=== PATIENT | female | born 1960 | race Caucasian/White ===

== ENCOUNTER 2018-07-19 00:57 | Outpatient (CLI) | payer MEDICAID, SELFPAY ==
[2018-07-19 11:18] LABS: Abs Immature Grans 0.01 k/cumm (0.0-0.09); Absolute Basophil Count 0.03 k/cumm (0.0-0.2); Absolute Eosinophil Count 0.11 k/cumm (0.0-0.7); Absolute Monocyte Count 0.65 k/cumm (0.11-0.7); Basophils % 0.4; Eosinophils % 1.4; HCT 40.7 % (36.0-46.0); HGB 13.4 g/dL (12.0-15.5); Immature Grans % 0.1; Lymphocytes % 24.4; Mean Corp. HGB Concentration 32.9 g/dL (32.0-36.0); Mean Corpuscular Hemoglobin 32.4 pg (27.0-33.0); Mean Corpuscular Volume 98.5 fL (80-95); Monocytes % 8.3; Neutrophils % 65.4; Platelet Count 291 x1000/uL (130-400); RBC 4.13 m/cumm (4.00-5.20); RBC Distribution Width 13.3 % (11.7-14.6)
[2018-07-19 12:52] LABS: ALT 24 U/L (12-78); AST 15 U/L (15-37); Albumin 3.6 g/dL (3.4-5.0); Alkaline Phosphatase 75 U/L (46-116); Anion Gap 12.1 mmol/L (3-11); BUN 30 mg/dL (7-18); Bilirubin, Total 0.4 mg/dL (0.2-1.0); CO2 23.9 mmol/L (21.0-32.0); Calcium 9.2 mg/dL (8.5-10.1); Chloride 104 mmol/L (98-107); Cholesterol 217 mg/dL (50-200); Estimated GFR 56.56 (mL/min/1.73m2); Glucose 102 mg/dL (70-100); HDL Cholesterol 76 mg/dL (40-60); LDL CHOLESTEROL 118 mg/dL (<100); Potassium 4.1 mmol/L (3.5-5.1); Sodium 140 mmol/L (136-145); TSH (W/Ref FT4) 4.09 uIU/mL (0.358-3.74); Total Protein 7.2 g/dL (6.4-8.2); Triglyceride 125 mg/dL (30-150); Vitamin B12 648 pg/mL (193-986)
[2018-07-19 13:03] LABS: Folate > 20.0 ng/mL (8.6-20.0)
[2018-07-19 13:28] LABS: FREE T4 0.93 ng/dL (0.76-1.46)
[2018-07-24 14:39] LABS: 25-Hydroxy D Total 66 ng/mL; 25-Hydroxy D2 <4.0 ng/mL; 25-Hydroxy D3 66 ng/mL
== END 2018-07-19 01:17 ==
PROVIDERS: Nurse Practitioner Family; PCP Nurse Practitioner; Visit Provider Nurse Practitioner Family
DX: R10.13 Epigastric pain (principal); R14.2 Eructation; Z00.00 Encounter for general adult medical examination without abnormal findings; Z13.29 Encounter for screening for other suspected endocrine disorder; D50.9 Iron deficiency anemia, unspecified; E66.9 Obesity, unspecified
CPT/HCPCS: 36415; 80053; 80061; 82306; 83721; 82607; 82746; 84439; 84443; 85025

== ENCOUNTER 2020-10-04 18:58 | Emergency (ER) | payer MEDICAID, SELFPAY ==
--- NOTE | 2020-10-04 19:09 | NUR.NOTE ---
Pt sent over from [facility] at 1905. Pt with daughter in registration area when Alberto from registration explained the policy on visitors. Alberto called back stating that the daughter refuses to let her mother (the patient) in alone. Charge nurse went out and spoke to Alberto. Charge nurse approached patient and daughter, and explained that the policy is that only patients can be seen, unless the patient has documented diagnosis of demenita or is a minor. The daughter got upset and stated that she is a veterinary bacteriologist and understands the policy but thinks she should be allowed back. At that point the patient made the decision to walk out of vestibule and back towards the car. The daughter continued on to say So you are not going to give her medical attention, she could out there! Charge explained that she can come in and get all the medical attention she needs, but our policy states she has to come back alone. The daughter then stated well my brother is an employee, can he come back with her? Again, olivier stated. Unfortunately not, due to the state of the pandemic and the policy set in place, the patient will need to come back to the department alone. The daughter left and headed towards the car. Nurse came back to let DO know and [facility] was also contacted.
== END 2020-10-04 19:05 ==
LOC: ER 21:03
PROVIDERS: PCP Nurse Practitioner
DX: Z53.21 Procedure and treatment not carried out due to patient leaving prior to being seen by health care provider (principal)

== ENCOUNTER 2020-11-09 15:51 | Outpatient (CLI) | payer MEDICAID, SELFPAY ==
--- NOTE | 2020-12-10 14:23 | CER_ITS ---
Date of service: 12/10/20 Time of Service: 14:23 Cardiac Event Recorder Referring Provider:: Marie Buckley Indications:: Dizziness Cardiac Event Note: This was a 30-day event monitor, ordered for symptoms of dizziness. Predominant rhythm was sinus. Average heart rate was 82 There were rare atrial and ventricular ectopic beats There was no atrial fibrillation, no pauses greater than 3 seconds, no high- grade AV block No patient symptoms were reported
== END 2020-11-09 15:52 | disposition home or self-care (01) ==
LOC: RT 15:53
PROVIDERS: PCP Nurse Practitioner; Visit Provider Nurse Practitioner Family
DX: R42 Dizziness and giddiness (principal); R94.31 Abnormal electrocardiogram [ECG] [EKG]
CPT/HCPCS: 93270

== ENCOUNTER 2020-12-03 02:39 | Outpatient (CLI) | payer MEDICAID, SELFPAY ==
[2020-12-03 11:32] LABS: Source Nasal/Nares
[2020-12-03 16:50] LABS: COVID-19 PCR Negative (Negative)
== END 2020-12-03 02:40 | disposition home or self-care (01) ==
LOC: LBO 02:39
PROVIDERS: PCP Physician Assistant; Visit Provider Surgery
DX: Z20.822 Contact with and (suspected) exposure to COVID-19 (principal)
CPT/HCPCS: 87635

== ENCOUNTER 2020-12-06 07:08 | Day surgery (SDC) | payer MEDICAID, SELFPAY ==
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
--- NOTE | 2020-12-06 06:40 | ENDO_ITS ---
Date of service: 12/06/20 Time of Service: 08:17 Endoscopy Report DATE OF PROCEDURE: 12/06/20 PRE-OP DIAGNOSIS: GERD, Colon Cancer Screening POST-OP DIAGNOSIS: other (Gastritis, Gastric polyps, Esopghagitris, lizama- diverticulosis) PROCEDURE: 1. EGD with biopsies 2. Colonoscopy SURGEON: Erna Ko ANESTHESIA TYPE: General:No Airway ESTIMATED BLOOD LOSS: 3 PATHOLOGY: other (Antrum Bx, Cardia bx, gastric polyp bx) COMPLICATIONS: None DISPOSITION: same day INDICATIONS: Mrs. Lama is a 60-year-old female with high anxiety who is here today to discuss having an upper endoscopy and colonoscopy done. She has been having worsening reflux symptoms and is currently taking Prilosec twice a day, Carafate 4 times a day as well as as needed Rolaids. She also has had some lower abdominal pain. Her stools have changed from mostly constipated to soft. She has not had any blood. She has no family history of colon cancer. She has never had a colonoscopy before. We discussed having anesthesia place the IV under ultrasound guidance as per her request. She would also benefit from an MKO prior to her IV placement. We will allow her daughter Marielos to come in with her as she would be a calming presence for the patient. The patient's other concern is that she has been told that she has a difficult airway. I did reassure her that I would pass this information along. Were explained in detail using pamphlets with pictures. We reviewed risks and benefits. All her questions were answered to her satisfaction. Risks, benefits and complications have been reviewed. Complications include but are not limited to bleeding, pain, perforation, missed small lesion/polyp, sore throat, aspiration and adverse reaction to the medications. Questions were entertained and answered to their satisfaction and they wished to proceed. No guarantees were given or implied. COVID-19 testing explained to the patient. Reason for test reviewed. Quarantine per state requirements reviewed with patient. Patient understands and agrees to testing. Proceed with EGD and colonoscopy under sedation. PREP: Miralax/Dulcolax PROCEDURE START TIME: 08:17 PROCEDURE END TIME: 08:52 COLONOSCOPY RETRACTION TIME: 13 minutes FINDINGS: Upper- moderate gastritis, mild esophagitis Lower- Lizama-diverticulosis PROCEDURE DESCRIPTION: After informed consent was obtained the patient was take to the procedure room and placed in a supine position. Monitors were applied and a time out was done. The patients name, date of , procedure type, allergies to medications and metal in their body was reviewed. A bite block was placed and the patient was sedated. Once sedated and comfortable the gastroscope was advanced through the oropharynx which was grossly normal into the esophagus. The proximal and mid- esophagus were normal. In the distal esophagus there was mild inflammation noted. The scope was advanced into the stomach and through the pylorus into the 3rd portion of the duodenum. The duodenum was noted to be normal. The scope was retracted back into the stomach. There was moderate inflammation noted in the antrum, cardia and fundus. Biopsies were done to rule out H. pylori. There were no ulcers. There were numerous small polyps that looked like benign fundic polyps. 3 of them were randomly biopsied. The scope was retro-flexed. The cardia and fundus were noted to have inflammation. There was no hiatal hernia noted. The scope was retracted back into the esophagus. There was mild inflammation noted. Biopsies were done of the GE junction to rule out Gonzalez's. The Z line was regular. The GE junction was at 35 cm. While the patient was still sedated they were placed in a left decubitous position. A rectal exam was done. External exam was normal. Internal exam revealed a decreased sphincter tone and no palpable masses. The scope was then introduced and retro-flexed. No internal hemorrhoids, masses or polyps were identified on retroflexion. The scope was then advanced to the cecum without difficulty. The ileocecal valve and appendiceal orifice were identified. The prep was good. The scope was then slowly retracted over 13 minutes back into the rectum. There were no polyps. There was moderate lizama- diverticulosis noted. The scope was removed and the patient was woken up and taken back to Same day surgery in stable condition. The patient tolerated the procedure well and there were no immediate complications. Follow up: 10 years for next colonoscopy. I will call with results of upper endoscopy. Continue medications as prescribed for now.
--- NOTE | 2020-12-06 06:41 | W.PM.DSUDISC ---
Discharge Plan Disposition Patient Disposition: HOME Condition: Good Discharge Details Reason For Visit: GERD and colonoscopy Attending Provider: Erna Ko Primary Care Provider: Barrett Stallworth Home Meds and New Rx's Prescriptions: Discontinued polyethylene glycol 3350 [Miralax] 17 GM powder in packet 255 gm PO for colonoscopy Qty: 1 RF: 0 bisacodyl [Dulcolax (bisacodyl)] 5 MG tablet,delayed release (DR/EC) 5 mg PO ONCE Qty: 4 RF: 0 omeprazole [Prilosec] 20 MG capsule,delayed release(DR/EC) 20 mg PO DAILY RF: 0 No Action sucralfate [Carafate] 100 mg/mL suspension 10 ml PO QAC RF: 0 diphenhydramine HCl [Benadryl] 25 mg capsule 25 mg PO QHS RF: 0 fluticasone propionate [Flonase Allergy Relief] 50 mcg/actuation spray,suspension 1 spray intranasal BID RF: 0 pantoprazole 40 mg tablet,delayed release (DR/EC) 40 mg PO BID RF: 0 lorazepam 1 mg tablet 1 mg PO ONCE PRNRF: 0 triamcinolone acetonide 0.1 % cream 1 applic topical BID RF: 0 nystatin 100,000 unit/gram cream 1 applic topical BID RF: 0 albuterol sulfate [ProAir HFA] 90 mcg/actuation HFA aerosol inhaler 2 puff inhalation Q6H PRNRF: 0 Calci-Mix 500 mg calcium (1,250 mg) capsule 500 mg PO DAILY RF: 0 black cohosh 20 mg tablet 20 mg PO DAILY RF: 0 cholecalciferol (vitamin D3) 25 mcg (1,000 unit) capsule 25 mcg PO DAILY RF: 0 omega-3 fatty acids [Fish Oil Concentrate] 1,000 mg capsule 1,000 mg PO DAILY RF: 0 paroxetine HCl [Paxil] 10 MG tablet 10 mg PO DAILY RF: 0 bupropion HCl [Wellbutrin] 100 MG tablet 450 mg PO DAILY RF: 0 loratadine [Claritin Liqui-Gel] 10 MG capsule 10 mg PO DAILY RF: 0 acetaminophen [Tylenol] 325 mg Capsule 650 mg PO PRN PRNRF: 0 Discharge Instructions Instructions: Diet for Stomach Ulcers and Gastritis (ED), Gastric Polyps (DC), Gastritis (DC), Esophagitis (DC), Diverticulosis (DC) Additional Instructions: Findings: Inflammation of the stomach and esophagus. No ulcers Diverticulosis Follow up: 10 years for next colonoscopy I will call with results Please call if you develop: fevers >101.5 Nausea or Vomiting Abdominal pain that is not transient DAY SURGERY UNIT POST ENDOSCOPY INSTRUCTIONS 1. Because there will be medication in your system for the next 24 hours, you may feel a little sleepy. Your coordination will be affected. Therefore: a. Do not drive or operate dangerous equipment for 24 hours. b. Do not drink alcohol beverages for 24 hours (not even beer). c. Plan to go home and rest for the day. 2. Generally there are no restrictions on your activity after a day or so has gone by, but you may feel a bit fatigued for a few days. 3 After you arrive home you may have a light meal and return to a normal diet as you can tolerate it without feeling sick to your stomach. 4. After surgery, you may feel pain or discomfort. This should be only transient, but if it persists please contact your doctor. 5. If there are any questions regarding the findings of your procedure, please feel free to contact your doctor. 6. If you are unable to contact your doctor with a problem, contact the hospital at [phone]. 7. Continue all your regular medications unless directed otherwise. I understand the above instructions and have no questions. Signature of Patient or Responsible Adult Escort Date/Time Name of Responsible Adult Escort Signature of Nurse Date/Time Activity:: Activity as Tolerated Diet:: low acid and high fiber Discharge Orders Discharge Orders: Discharge Order (Routine); Ordered 12/06/20 Ordered By: Erna Ko DS: Diagnosis Discharge Diagnosis (1) GERD (gastroesophageal reflux disease): Status: Chronic (2) Encounter for colorectal cancer screening: Status: Acute
[2020-12-06 07:10] VITALS: BP 129/72; PULSE 65; RESP 17; TEMP 36.4; O2SAT 98
[2020-12-06] MEDS: Lactated Ringers 1,000 ML 80 ML IV (07:55)
--- NOTE | 2020-12-06 08:20 | STOM_PTH ---
PATIENT: Ara Lama LOC: [facility] U#:[id number] AGE/SX: 60/F ROOM: RE12/06/[address]: Erna Ko MD : 1960 BED: DIS: 12/06/2020 SPEC #: [id number] RECD: 12/06/20 12:31 STATUS: TORREY REIvan #: [id number] DINA: 12/06/20 08:[address]: Erna Ko DEPT: Surgical Specimen RECD BY: Mere Huang ENTERED: 12/06/20 12:36 SP TYPE: STOMACH OTHR DR: Barrett Stallworth Tissues: 1 - STOMACH BIOPSY 2 - STOMACH BIOPSY 3 - STOMACH BIOPSY 4 - ESOPHAGUS BIOPSY Procedures: GROSS AND MICRO LEVEL 4 Comments: [id number]
[2020-12-06 09:40] VITALS: BP 109/59; PULSE 78; RESP 18; TEMP 36.4; O2SAT 96
== END 2020-12-06 09:57 | disposition home or self-care (01) ==
LOC: SUR 07:09
PROVIDERS: PCP Physician Assistant; Visit Provider Surgery
PROC: (CPT 43239; principal; 2020-12-06 08:30)
DX: Z12.11 Encounter for screening for malignant neoplasm of colon (principal); K29.70 Gastritis, unspecified, without bleeding; K21.00 Gastro-esophageal reflux disease with esophagitis, without bleeding; F41.9 Anxiety disorder, unspecified; K31.7 Polyp of stomach and duodenum; K57.30 Diverticulosis of large intestine without perforation or abscess without bleeding
CPT/HCPCS: 43239; 45378; 88305; NC; J2001; J2704

== ENCOUNTER 2024-07-10 09:52 | Outpatient (CLI) | payer OTHER, MEDICAID, SELFPAY ==
--- NOTE | 2024-07-10 | DI.US_ITS ---
Exam(s) US ABDOMEN LIMITED EXAM: US ABDOMEN LIMITED CLINICAL HISTORY: UPPER ABD PAIN R10.10 TECHNIQUE: Ultrasound abdomen performed using standard protocol. COMPARISON: US LEFT BREAST ULTRASOUND from 05/05/2011 FINDINGS: There is no ascites evident. LIVER: Mildly hyperechoic indicating element of steatosis. No discrete focal hepatic lesions. GALLBLADDER/BILIARY: There are no gallstones. No gallbladder wall edema nor pericholecystic fluid. The common hepatic duct isnot dilated, measuring 5mm at the level of tim hepatis. PANCREAS: There is no evidence of pancreatic mass nor dilatation of the pancreatic duct. RIGHT KIDNEY:No evidence of solid mass, calculus, nor hydronephrosis. No cortical cysts evident. IMPRESSION: 1. No evidence of cholelithiasis nor dilatation of the biliary tree. 2. Mild hepatic steatosis. 3. No other focal right upper quadrant ultrasound findings and there is no ascites evident. DATA REPOSITORY:
--- OUTSIDE RECORDS SUMMARY | 2024-07-10 09:53 | XMS_ITS | Encounter Summary ---
Author Organization [facility] [place] [address] Care Team Providers Care Sales Trader Name Role Phone Heidy Boyd ERIC Primary Care Provider [phone] Encounter Details Date Type Department Care Team (Latest Contact Info) Description 04/18/2019 9:41 PM EDT - 04/18/2019 11:59 PM EDT Hospital En[place] [id number] Discharge Disposition: Home Social History Tobacco Use Types Packs/Day Years Used Date Smoking Tobacco: Never Smokeless Tobacco: Never Sex and Gender Information Value Date Recorded Sex Assigned at Not on file Gender Identity Not on file Sexual Orientation Not on file documented as of this encounter Medications at Time of Discharge Medication Sig Dispensed Refills Start Date End Date nystatin (MYCOSTATIN) Cream 0 10/30/2018 triamcinolone (KENALOG) 0.1 % Cream 0 10/30/2018 gabapentin (NEURONTIN) 100 mg Capsule 0 07/14/2016 LORazepam (ATIVAN) 0.5 mg Tablet 0 06/11/2016 PROAIR HFA 90 mcg/actuation HFA Aerosol Inhaler Reported on 08/24/2016 0 03/08/2016 PARoxetine (PAXIL) 20 mg tablet 10/14/2008 omeprazole (PRILOSEC) 20 mg capsule 10/14/2008 GLUCOSAMINE SULFATE (GLUCOSAMINE ORAL) 10/14/2008 Flaxseed Oil 1,000 mg Cap 10/14/2008 Touchet-3 Fatty Acids (FISH OIL) 500 mg Cap 10/14/2008 loratadine (CLARITIN) 10 mg tablet 10/14/2008 FLUTICASONE PROPIONATE (FLONASE NASL) 10/14/2008 ibuprofen (ADVIL;MOTRIN) 600 mg tablet 600MG = 1 Tablet(s), PO, Q6H,PRN 10/14/2008 buPROPion (WELLBUTRIN SR OR ZYBAN) 150 mg tablet sustained-release 12 hr take 1 tablet by mouth once daily 0 12/04/2018 07/21/2019 documented as of this encounter Plan of Treatment Not on file documented as of this encounter Visit Diagnoses Not on filedocumented in this encounter Care Teams Sales Trader Relationship Specialty Start Date End Date Heidy Boyd, ERIC [address] [place] [address] PCP - General Family Medicine 04/20/16 06/12/19 documented as of this encounter
--- OUTSIDE RECORDS SUMMARY | 2024-07-10 09:53 | XMS_ITS | Encounter Summary ---
Author Organization [facility] Address [facility] [place] [address] Care Team Providers Care Assemblies And Installations Inspector Name Role Phone Marie Buckley APRN Primary Care Provider [phone] Encounter Details Date Type Department Care Team (Late st Contact Info) Description 10/30/2006 Orders Only Obstetrics [place] [address] Savanna Rivera MD [facility] [address] OBSTETRICS & [place] [address] Social History Tobacco Use Types Packs/Day Years Used Date Smoking Tobacco: Never Assessed Sex and Gender Information Value Date Recorded Sex Assigned at Not on file Gender Identity Not on file Sexual Orientation Not on file documented as of this encounter Plan of Treatment Not on file documented as of this encounter Procedures Procedure Name Priority Date/Time Associated Diagnosis Comments SURGICAL PATHOLOGY REPORT Routine 10/30/2006 11:48 AM EDT documented in this encounter Results * Surgical Pathology Report (10/30/2006 11:48 AM EDT) Surgical Pathology Report [id number] ? Location: [facility]; 0211; B The signing pathologist has (i) examined the relevant preparation(s) for the specimen(s) and (ii) rendered or confirmed the diagnosis(es). . ?Pathology Surgical Pathology Final Report Clinical Information Specimen Submitted: A - Uterus; Tubes; Ovaries; Blood; out at 1006: ??Wt 1515 g Clinical History: Wira Protocol Number: ?? 4200 Clinical Diagnosis: Fibroid uterus Gross Description Labeled/Fixative: ?Uterus/tubes/ova roque/blood for Wira/out at 1006; ? fresh. Qty/Size/Weight: ? One, 17.0 x 15.0 x 10.0 cm, 1470 g. Tissue Description: ?A previously opened uterus and cervix with ? attached ovaries and tubes. ??The uterus is ? distorted by a large lesion. ?? Uterus and Cervix: ?Endometrium: ? Cavity measures 8.6 x 2.2 cm. ??Endometrium is red ? and smooth. ? Thickness: ?0.2 cm. ? Lesions: ?None identified. ?Myometrium: ?Felix and soft. ? Lesions: ?There is a large distorting subserosal lesion on ? the posterior and right lateral aspect of the ? uterus, measuring ??15.0 cm in diameter. ?Cut section reveals light felix-yellow, firm, ? whorled lesion. ??This is the only lesion ? identified within the myometrium. ?Uterine serosa: ?Light pink, smooth, and shiny. ?Cervix: ?Light felix and smooth ectocervix. ?? Ovaries and Fallopian Tubes: ?Right ovary ? Dimensions: ? 4.0 x 3.0 cm. ? Outer surface: ??Ranges from pink to dark purple with multiple ? fluid-filled nodules. ??There is a small amount of ? residual, felix, wrinkly surface. ? Cut surface: ?Reveals multiple cystic structures, 2.0 cm in ? diameter, ??filled with white-yellow fluid. ??Others ? are filled with hemorrhage. ?Right tube: ?Mildly congested and dilated, 8.0 cm in length. ?Left ovary ? Dimensions: ? 4.0 x 2.0 cm. ? Outer surface: ??[place]-felix and wrinkly. ? Cut surface: ?Reveals 0.3-db-nb-diameter cyst. ??Yellow nodules. ? The remainder ranges from pink to purple. ?Left tube: ? [place]; appears grossly normal, 5.5 cm, with a ? portion that was already removed. Sections/Processin g: ? [employer] Obiee Developer sections are submitted as follows: ? (1) anterior cervix; (2) posterior cervix; (3-4) ? endometrium; (5-8) right tube and ovary; (9-16) ? left tube and ovary; (17-31) paper sales representative ? sections of myometrial lesion. ??(R31) ??aje/ELF . Microscopic Description Slides reviewed, microscopic description not recorded. Diagnosis Uterus, bilateral fallopian tubes and ovaries (hysterectomy and bilateral salpingo- oophorectomy): ??1 - Large subserosal leiomyoma. ??2 - Proliferative endometrium. ??3 - Nabothian cysts, endocervix. ??4 - Bilateral ovarian follicular cysts. ??5 - Bilateral fallopian tubes, no histopathologic abnormalities. CR-0 11/01/06 JONATHAN 11/07/06 Verified by: ? Azam La MD ?Pathologist ?(Electronic Signature) The attending pathologist whose signature appears on this report has reviewed all diagnostic slides and has edited the gross and/or microscopic portion of the report in rendering the final pathologic diagnosis. GUILLE LONGO 10/30/2006 11:4 8 AM EDT Savanna Alegre MD PATHOLOGY/C YTOLOGY ORDERABLES GUILLE LONGO documented in this encounter Visit Diagnoses Not on filedocumented in this encounter Care Teams Assemblies And Installations Inspector Relationship Specialty Start Date End Date Marie Buckley, CONTINUOUS YARN DYEING MACHINE OPERATOR [address] [place] [address] PCP - General Family Medicine 06/13/19 documented as of this encounter
--- OUTSIDE RECORDS SUMMARY | 2024-07-10 09:53 | XMS_ITS | Encounter Summary ---
Author Organization [facility] Address [facility] [place] [address] Care Team Providers Care Nutritional Assistant Name Role Phone Marie Buckley APRN Primary Care Provider [phone] Encounter Details Date Type Department Care Team (Late st Contact Info) Description 06/13/2019 Refill Dermatology at [address] [address] Odalis Lopez, TOWEL INSPECTOR Social History Tobacco Use Types Packs/Day Years [...] on filedocumented in this encounter Care Teams Nutritional Assistant Relationship Specialty Start Date End Date Marie Buckley APRN [address] [place] [address] PCP - General Family Medicine 06/13/19 documented as of this encounter
--- OUTSIDE RECORDS SUMMARY | 2024-07-10 09:53 | XMS_ITS | Encounter Summary ---
Author Organization [facility] Address [facility] [place] [address] Care Team Providers Care Funeral Home Makeup Artist Name Role Phone Heidy Boyd APRN Primary Care Provider Encounter Details Date Type Department Care Team (Late st Contact Info) Description 04/22/2019 External [place] [address] Provider, Scanning Social History Tobacco Use Types Packs/Day Years [...] Priority Date/Time Associated Diagnosis Comments SURGICAL PATHOLOGY SCAN Routine 04/22/2019 documented in this encounter Results * Scan Doc: Surgical Pathology (04/22/2019) Historical Provider MD ESTRADA MGR SCAN EX T ORDR/RSLT documented in this encounter Visit Diagnoses Not on filedocumented in this encounter Care Teams Funeral Home Makeup Artist Relationship Specialty Start Date End Date Heidy Boyd APRN [address] [place] [address] PCP - General Family Medicine 04/20/16 06/12/19 documented as of this encounter
--- OUTSIDE RECORDS SUMMARY | 2024-07-10 09:53 | XMS_ITS | Encounter Summary ---
Author Organization [facility] Address [facility] [place] [place] [address] Care Team Providers Care Puddler Pile Driving Name Role Phone Marie Buckley APRN Primary Care Provider [phone] Reason for Visit * Reason Comments Chest Pain Shortness of Breath Encounter Details Date Type Department Care Team (Late st Contact Info) Description 10/04/2020 8:38 PM EST - 10/04/2020 11:10 PM [place] [address] Galo Vides MD [facility] [address] [place] [address] Infectious colitis, enteritis and gastroenteritis Discharge Disposition: Home Social History Tobacco Use Types Packs/Day Years Used Date Smoking Tobacco: Never Smokeless Tobacco: Never Alcohol Use Standard Drinks/Week Comments Not Currently 0 (1 standard drink = 0.6 oz pur e alcohol) Sex and Gender Information Value Date Recorded Sex Assigned at Not on file Gender Identity Not on file Sexual Orientation Not on file documented as of this encounter Last Filed Vital Signs Vital Sign Reading Time Taken Comments Blood Pressure 143/48 10/04/2020 9:30 PM EST Pulse 73 10/04/2020 9:45 PM EST Temperature 36.8 ??C (98.2 ??F) 10/04/2020 8:21 PM ES T Respiratory Rate 25 10/04/2020 9:45 PM EST Oxygen Saturation 98% 10/04/2020 9:45 PM EST Inhaled Oxygen Concentration - - Weight 81.6 kg (180 lb) 10/04/2020 8:21 PM EST Height 165.1 cm (5' 5) 10/04/2020 8:21 PM EST Body Mass Index 29.95 10/04/2020 8:21 PM EST documented in this encounter Medications at Time of Discharge Medication Sig Dispensed Refills Start Date End Date buPROPion XL (WELLBUTRIN XL) 300 mg Tablet Extended Release 24 hr 0 07/02/2019 pantoprazole (PROTONIX) 40 mg Tablet, Delayed Release (E.C.) take 1 tablet by mouth once daily 0 06/05/2019 minocycline (MINOCIN;DYNACIN) 100 mg Capsule Take one tablet by mouth at HS for 1 wk then twice daily 60 capsule 1 06/13/2019 nystatin (MYCOSTATIN) Cream 0 10/30/2018 triamcinolone (KENALOG) 0.1 % Cream 0 10/30/2018 gabapentin (NEURONTIN) 100 mg Capsule 0 07/14/2016 LORazepam (ATIVAN) 0.5 mg Tablet 0 06/11/2016 PROAIR HFA 90 mcg/actuation HFA Aerosol Inhaler Reported on 08/24/2016 0 03/08/2016 PARoxetine (PAXIL) 20 mg tablet 10/14/2008 omeprazole (PRILOSEC) 20 mg capsule 10/14/2008 GLUCOSAMINE SULFATE (GLUCOSAMINE ORAL) 10/14/2008 Flaxseed Oil 1,000 mg Cap 10/14/2008 Beebe-3 Fatty Acids (FISH OIL) 500 mg Cap 10/14/2008 loratadine (CLARITIN) 10 mg tablet 10/14/2008 FLUTICASONE PROPIONATE (FLONASE NASL) 10/14/2008 ibuprofen (ADVIL;MOTRIN) 600 mg tablet 600MG = 1 Tablet(s), PO, Q6H,PRN 10/14/2008 documented as of this encounter ED Notes * Domenic Gibbs RN - 10/04/2020 11:06 PM EST Pt not in room, left AMA. * Domenic Gibbs RN - 10/04/2020 9:[address] Vides at bedside. * Domenic Gibbs RN - 10/04/2020 9:[address] Pro at bedside. Pt awake & alert, states she does not really have pain, endorses mild SOB. Pt in no apparent distress. She has anxiety around needles. Tachypnea circa IV placement/lab draw. SH * Jasmina Pro MD - 10/04/2020 8:42 PM EST ED Provider Note HPI: Ara Lama is a 60 y.o. female with a history of GERD and depression who presents to the Emergency Department for 3 days of abdominal pain malaise. Patient states she was having some constant, lower abdominal cramping associated with loose stools. During this time, she also noted some shortnessof breath without chest pain, pressure, or palpitations. Also notes nausea without vomiting. No urinary symptoms or changes in p.o. intake. Patient called her primary care doctor with the symptoms, and the recommended she go to the walk-in clinic. She did so, and was advised to go to the emergency department for further testing, as they could not obtain a reliable EKG due to motion artifact. Patient was too anxious to be in the emergency department without a visitor, so she left and came here instead. At the time of my evaluation, she has no complaints. Pt was seen under the supervision of an attending physician. ROS: Pertinent positives and negatives are included in the HPI, otherwise at least ten systems were reviewed and negative. Past Medical and Surgical Histories, Social History, Medications, Allergies were reviewed in the chart. Physical Exam: ED Triage Vitals [10/04/202020] BP: 147/70 Heart Rate: 85 Resp: 20 Temp: 36.8 ??C (98.2 ??F) Temp src: Oral SpO2: n/a O2 Device: RA O2 Flow Rate (L/min): n/a General appearance: Well-appearing, well-nourished. Resting comfortably and in no acute distress. HEENT: Normocephalic and atraumatic. No conjunctival injection. No scleral icterus. Neck: Supple, full range of motion. Trachea midline. No thyromegaly. No lymphadenopathy. No JVD. Cardiovascular: Normal rate. No murmurs, no rubs, no gallops. Capillary refill < 2 seconds. 2+ radial pulses and equal bilaterally. No peripheral edema. Pulmonary: There is no accessory muscle use or retraction. Lungs are clear to auscultation and equal bilaterally. No wheezes, no crackles, no ronchi. Abdominal: Positive bowel sounds in all four quadrants. Abdomen soft, nontender, nondistended. No guarding, no rebound. No hepatosplenomegaly. Musculoskeletal: No gross deformities. Neurological: AAOx3. Cranial nerves II-XII are grossly intact. Strength and sensation are grossly intact. Psychiatric: Appropriate mood and affect. Thought process organized. Speech goal-directed. Skin: Warm and well-perfused. No rashes. ED Course: ED Course as of Oct 04 2306 Mon Oct 04, [id number] On my review, EKG shows sinus arrhythmia with frequent PVCs, rate about 75, normal axis, normal intervals, no ST segment changes or signs of ischemia. 2127 Lactate 2.39, will administer fluids 2234 CMP and CBC unremarkable. Negative lipase. Reassuring against acute infectious or inflammatoryintra-abdominal process. Negative troponin reassuring against cardiac ischemia. Assessment and Plan: 60 y.o. female with a few days of malaise. Patient is hemodynamically normal, afebrile and nontoxic-appearing. Her nonfocal presentation is concerning for possible cardiac etiology; heart score is 2. EKG without signs of ischemia with interpretation as above and negative troponin reassuring against cardiac ischemia. Also considered acute infectious or inflammatory intra-abdominal pathology; however this is further reassured against by herbenign abdominal exam and normal liver enzymes and lipase. Her lactate was mildly elevated to 2.39.Patient did receive a liter of fluids. Plan was to repeat lactate after fluids, however the patientwas noted to have left her room. Final disposition: Eloped. Jasmina Pro MD Resident 10/04/20 2370 Associated attestation - Galo Vides MD - 10/06/2020 1:15 PM EST ED ATTENDING ADDENDUM: The patient was seen in conjunction with Dr. Pro, the resident physician. I have independently performed the cárdenas portions of the history and physical exam. I have reviewed all diagnostic studies personally including labs, imaging studies and EKG's. I have reviewed the patient's chart where indicated. I have also reviewed/obtained the allergies, medication, past medical history, and social history as documented in other parts of the chart. I have discussed the details of the case with the resident and agree with the all cárdenas portions of the H&P and plan as described in the resident note above. documented in this encounter Miscellaneous Notes * ED Triage - Emilia Milton RN - 10/04/2020 8:[address] said to come to the ED. Was seen and they saw EKG changes and told her to come the ED> States having a little chest pressure and feeling short of breath. Started on Sunday. Started to feel sick and just got worse. Has had some nausea. documented in this encounter Plan of Treatment Not on file documented as of this encounter Procedures Procedure Name Priority Date/Time Associated Diagnosis Comments L-LACTATE2 WHOLE BLOOD Routine 9:10 PM EST HEMOGRAM STAT 10/04/2020 9:05 PM EST DIFFERENTIAL, AUTOMATED STAT 10/04/2020 9:05 PM EST GOLD TUBE HOLD STAT 10/04/2020 9:05 PM EST BLUE TUBE HOLD STAT 10/04/2020 9:05 PM EST HC CBC,PLT & AUTO DIFF STAT 9:05 PM EST HC TROPONIN T STAT 10/04/2020 9:05 PM EST HC LIPASE STAT 10/04/2020 9:05 PM EST COMPREHENSIVE METABOLIC PANEL STAT 10/04/2020 9:05 PM EST EKG 12-LEAD STAT 10/04/2020 8:31 PM EST documented in this encounter Results * (ABNORMAL) L-Lactate2 Whole Blood (10/04/2020 9:10 PM EST) Lactate WB 2.4(H) 0.5 - 2.2 mmol/L [facility] Blood specimen (specimen) 10/04/2020 9:10 PM EST 10/04/2020 9:10 PM EST Emergency Dept CHEMISTRY ORDERABLE S Performing Organization Address City/[facility]/ZIP Co de Phone Number [facility] [place] [address] * Gold Tube HOLD (10/04/2020 9:05 PM EST) [facility] Gold Hold Sample in lab. [facility] Blood specimen (specimen) Venous Draw / Unknown 10/04/2020 9:05 PM EST 10/04/2020 9:15 PM EST Jasmina Pro MD CHEMISTRY ORDERABLES Performing Organization Address City/[facility]/ZIP Co de Phone Number [facility] [place] [address] * Blue Tube HOLD (10/04/2020 9:05 PM EST) [facility] Blue Hold Sample in lab. [facility] Blood specimen (specimen) Venous Draw / Unknown 10/04/2020 9:05 PM EST 10/04/2020 9:15 PM EST Jasmina Pro MD HEMATOLOGY ORDERABLE S Performing Organization Address City/[facility]/ZIP Co de Phone Number [facility] [place] [address] * Differential, Automated (10/04/2020 9:05 PM EST) Pathologist [facility] Neutrophil % 53.6 % [facility] Neutrophil Absolute 4.93 1.70 - 6.10 x10(3)/[facility] Lymph % 34.6 % [facility] Lymphocytes Abs 3.2 0.9 - 3.2 x10(3)/[facility] Monocyte % 9.5 % [facility] Monocyte Abs 0.9 0.3 - 0.9 x10(3)/[facility] Eos % 1.7 % [facility] Eosinophils Abs 0.2 0.0 - 0.4 x10(3)/[facility] Basophil % 0.4 % [facility] Baso Absolute 0.0 0.0 - 0.1 x10(3)/[facility] Immature Gran % 0.20 % [facility] Comment: Immature granulocytes(IG's)percentage and absolute count will include metamyelocytes, myelocytes, and promyelocytes. Blood smears from CBCs yielding IG's will be scanned manually for concordance. If this scan disagrees with the automated IG or if promyelocytes are noted, a manual differential will be performed. Immature Gran Absolute 0.02 0.00 - 0.04 x10(3)/[facility] Blood specimen (specimen) 10/04/2020 9:05 PM EST 10/04/2020 9:14 PM EST Narrative Resulting Agency Comment Spec In Lab Jasmina Pro MD HEMATOLOGY ORDERABLE S [facility] [place] [address] * (ABNORMAL) Hemogram (10/04/2020 9:05 PM EST) Pathologist [facility] White Blood Cell 9.2 4.0 - 9.5 x10(3)/mc L [facility] Red Blood Cell 4.68 4.00 - 5.21 x10(6)/mc L [facility] Hemoglobin 15.2 11.7 - 15.5 gm/dL [facility] Hematocrit 44.3 35.7 - 45.8 % [facility] Mean Cell Volume 94.7(H) 82.6 - 94.[address] [facility] Mean Cell Hemoglobin 32.5(H) 27.1 - 32.[address] [facility] Mean Cell Hemoglobin Concentration 34.3 31.7 - 35.0 gm/dL [facility] Platelet 337 145 - 357 x10(3)/mc L [facility] RDW Standard Deviation 42.8 37.0 - 46.[address] [facility] RDW coefficient of variation 12.3 11.5 - 14.1 % [facility] Mean Platelet Volume 10.9 7.6 - 12.[address] [facility] NRBC% auto 0.0 % [facility] NRBC Absolute 0.000 0.000 - 0.000 x10(3)/mc L [facility] Blood specimen (specimen) 10/04/2020 9:05 PM EST 10/04/2020 9:14 PM EST Narrative Resulting Agency Comment Spec In Lab Jasmina Pro MD HEMATOLOGY ORDERABLE S [facility] [place] [address] * Troponin (10/04/2020 9:05 PM EST) Troponin-T <0.01 0.00 - 0.00 ng/mL [facility] Comment: The 99th percentile for Troponin T is less than 0.01 ng/mL, any detectable cTnT concentration using this assay should be considered elevated. According to the third universal definition of myocardial infarction the following criteria with a clinical presentation consistent with acute myocardial ischemia meets the diagnosis for a myocardial infarction ([place]). Detection of a rise and/or fall of cTnT, with at least one value greater than the 99th percentile (> or = 0.01) and with at least one of the following ?? Symptoms of ischemia ?? New or presumed new significant BZ-wiveahn-K wave (ST-T) changes or new left bundle branch block (LBBB) ?? Development of pathologic Q waves in the ECG ?? Imaging evidence of new loss of viable myocardium or new regional wall motion abnormality ?? Identification of an intracoronary thrombus by angiography or autopsy Samples for cTnT testing should be obtained serially upon first assessment and again 3 to 6 hours later. If the clinical suspicion is high and previous samples have been negative an additional sample may be indicated. Reference: Third [place] Definition of Myocardial Infarction. Journal of the [place] [employer]iology 2012;60:1581-98 Blood specimen (specimen) 10/04/2020 9:05 PM EST 10/04/2020 9:14 PM EST Narrative Resulting Agency Comment Spec In Lab Patrice Diane MD CHEMISTRY ORDERABL ES Performing Organization Address [facility] de Phone Number [facility] [place] [address] * Lipase (10/04/2020 9:05 PM EST) Lipase 35 0 - 60 unit/L [facility] Blood specimen (specimen) 10/04/2020 9:05 PM EST 10/04/2020 9:14 PM EST Narrative Resulting Agency Comment Spec In Lab Patrice Diane MD CHEMISTRY ORDERABL ES Performing Organization Address [facility] de Phone Number [facility] [place] [address] * Comprehensive metabolic panel (non-fasting) (10/04/2020 9:05 PM EST) Glucose 93 65 - 199 mg/dL [facility] Comment:Diabetes: >=200 mg/d L plus symptoms Blood Urea Nitrogen 15 8 - 18 mg/dL [facility] Creatinine 0.93 0.70 - 1.20 mg/dL [facility] Sodium 138 135 - 145 mmol/L [facility] Potassium 4.0 3.5 - 5.0 mmol/L [facility] Comment: Please note: ??Patients with WBC >100,000 may have falsely elevated Potassium levels. ??For accurate Potassium quantification in these patients send serum separator tube (gold top) for subsequent determinations. ??Contact the Clinical Chemistry Laboratory if there are any questions. Chloride 103 98 - 107 mmol/L [facility] Carbon Dioxide 22 22 - 31 mmol/L [facility] Anion Gap 13 5 - 15 mmol/L [facility] Calcium 9.9 8.5 - 10.5 mg/dL [facility] Protein, Total 7.7 6.1 - 8.0 gm/dL [facility] Albumin 4.4 3.2 - 5.2 gm/dL [facility] Aspartate Aminotransferase 21 0 - 30 unit/L [facility] Alanine Aminotransferase 17 0 - 30 unit/L [facility] Alkaline Phosphatase 92 35 - 105 unit/L [facility] Bilirubin, Total 0.6 0.2 - 1.3 mg/dL [facility] Est Glomerular Filtration Rate 66 >=60 mL/min/1. 73 m?? [facility] Comment: This patient? s estimated glomerular filtration rate (eGFR) is between 66 mL/min/1.73 m2 (patients with less muscle mass) and 76 mL/min/1.73 m2 (patients with more muscle mass) as determined by the CKD-EPI equation. Assessment of eGFR is not appropriate when creatinine concentrations are rapidly changing. For clinical decisions where creatinine clearance will affect therapy, a 24-hour urine creatinine clearance may be advised. Assignment of CKD stage 1 ? 5 for patients with an eGFR near the transition point between stages may be based on clinical assessment of muscle mass and symptoms in addition to eGFR. Blood specimen (specimen) 10/04/2020 9:05 PM EST 10/04/2020 9:14 PM EST Narrative Resulting Agency Comment Spec In Lab Patrice Diane MD CHEMISTRY ORDERABL ES Performing Organization Address City/State/[facility] Co de Phone Number [facility] [place] [address] * EKG 12 Lead (10/04/2020 8:31 PM EST) Ventricular rate 77 BPM MUSE SYSTEM Atrial Rate 77 BPM MUSE SYSTEM P-R Interval 132 ms MUSE SYSTEM QRS Duration 84 ms MUSE SYSTEM Q-T Interval 360 ms MUSE SYSTEM QTC Calculated (Bezet) 407 ms MUSE SYSTEM Calculated P [place] 40 degrees MUSE SYSTEM Calculated R [place] 20 degrees MUSE SYSTEM Calculated T [place] 35 degrees MUSE SYSTEM INTERPRETATION Sinus rhythm with frequent Premature ventricular complexes Otherwise normal ECG No previous ECGs available Confirmed by MD Shayy, Colby ([id number]) on 10/05/2020 12:37:26 PM MUSE SYSTEM 10/04/2020 8:31 PM EST 10/05/2020 12:37 PM EST Galo Vides MD ECG ORDERABLES Performing Organization Address [facility] de Phone Number MUSE SYSTEM documented in this encounter Visit Diagnoses Diagnosis Infectious colitis, enteritis and gastroenteritis Infectious colitis, enteritis, and gastroenteritis documented in this encounter Administered Medications Inactive Administered Medications - up to 3 most recent administrations Medication Order MAR Action Action Date Dose Rate Site sodium chloride 0.9% 1,000 mL IV bolus at 2,000 mL/hr, Intravenous, ONCE, 1 dose, On Sun10/04/20 at 2131 New Bag 10/04/2020 9:45 PM EST 2000 mL/hr documented in this encounter Active and Recently Administered Medications Times are shown in EST. Scheduled Medication Order 10/02/2020 10/03/2020 10/04/2020 sodium chloride 0.9% 1,000 mL IV bolus (COMPLETED) at 2,000 mL/hr, Intravenous, ONCE, 1 dose, On Sun10/04/20 at 2131 2145 (New Bag - Prov ider: Domenic Gibbs RN)2215 (Due: Stopped - Provider: Domenic Gibbs RN) documented in this encounter Care Teams Puddler Pile Driving Relationship Specialty Start Date End Date Marie Buckley, WHOLESALER [address] [place] [address] PCP - General Family Medicine 06/13/19 documented as of this encounter
--- OUTSIDE RECORDS SUMMARY | 2024-07-10 09:53 | XMS_ITS | Encounter Summary ---
Author Organization [facility] [place] [address] Care Team Providers Care Daycare Assistant Name Role Phone Heidy Boyd APRN Primary Care Provider [phone] Encounter Details Date Type Department Care Team (Late st Contact Info) Description 10/11/2016 Telephone Obstetrics [place] [phone] Wilner Munoz MD [facility] [address] OBSTETRICS [place] [address] Social History Tobacco Use Types Packs/Day Years Used Date Smoking Tobacco: Never Smokeless Tobacco: Never Sex and Gender Information Value Date Recorded Sex Assigned at Not on file Gender Identity Not on file Sexual Orientation Not on file documented as of this encounter Miscellaneous Notes * Telephone Encounter - Megan Lopez - 10/25/2016 4:51 PM EST 10/25/16 called patient to schedule surgery. Preop and post op appointments arranged. Surgical Packet sent 10/25/16 to patient. Pt to call if any questions * Telephone Encounter - Megan Lopez - 10/11/2016 10:49 AM EST Called patient to schedule surgery. Offered 10/31 she is not available, pt desires November or December date. Will contact pt with a surgical date once schedules become available. documented in this encounter Plan of Treatment Not on file documented as of this encounter Visit Diagnoses Not on filedocumented in this encounter Care Teams Daycare Assistant Relationship Specialty Start Date End Date Heidy Boyd, ERIC [address] [facility] [address] PCP - General Family Medicine 04/20/16 06/12/19 documented as of this encounter
--- OUTSIDE RECORDS SUMMARY | 2024-07-10 09:53 | XMS_ITS | Encounter Summary ---
Author Organization [facility] [place] [address] Care Team Providers Care Chromosomal Disorders Counselor Name Role Phone Marie Buckley APRN Primary Care Provider [phone] Encounter Details Date Type Department Care Team (Late st Contact Info) Description 01/31/2007 Orders [place] [address] Rex Fishman MD DERMATOLOGY Social History Tobacco Use Types Packs/Day Years [...] Associated Diagnosis Comments SURGICAL PATHOLOGY REPORT Routine 01/31/2007 1:15 PM EDT documented in this encounter Results * Surgical Pathology Report (01/31/2007 1:15 PM EDT) Pathologist [facility] Surgical Pathology Report [id number] ? Location: The signing pathologist has (i) examined the relevant preparation(s) for the specimen(s) and (ii) rendered or confirmed the diagnosis(es). . ?Pathology Surgical Pathology Final Report Clinical Information Specimen Submitted: A - Scalp: ??punch 4 mm Clinical History: Scaly papules, plaques & pustules on the scalp Clinical Diagnosis: R/O lupus, impetigo Gross Description Labeled/Fixative : ? Labeled with the patient's name and medical record ?number, formalin. Qty/Size/Weight: ?Single punch, 0.4 cm, felix-white, hair-bearing, ?circular skin punch, excised to a depth of 0.3 cm. Sections/Process ing: ??Inked. ??Bisected. ??(T1) ??aje/CSS Microscopic Description Slides reviewed, microscopic description not recorded. Diagnosis Scalp, punch biopsy: ?? 1 - Acute folliculitis (see Comment). ?? 2 - Psoriasiform epidermal hyperplasia, compact hyperkeratosis, ? and dermal fibrosis, suggestive lichen simplex chronicus ? (see Comment). CR-0 02/01/07 JONATHAN 02/02/07 Verified by: ? Aditya Gomez MD ?Dermatopatholo gist ?(Electronic Signature) The attending pathologist whose signature appears on this report has reviewed all diagnostic slides and has edited the gross and/or microscopic portion of the report in rendering the final pathologic diagnosis. Comment Gram stain shows Gram-positive cocci in the involved follicle. ??PAS stain for fungi is negative for organisms. ??The dermis is quite fibrotic, the significance of which is uncertain. ??It may be a reaction in response to the folliculitis and/or any rubbing of the lesion that may be taking place. The findings are not diagnostic of lupus or impetigo. ??Drs. Scanlon and Adam concur. GUILLE LONGO 01/31/2007 1:15 PM EDT Rex Fishman MD PATHOLOGY/CYTOLOGY Helder DAWKINS GUILLE LONGO documented in this encounter Visit Diagnoses Not on filedocumented in this encounter Care Teams Chromosomal Disorders Counselor Relationship Specialty Start Date End Date Marie Buckley, VEHICLE BODY BUILDER [address] [place] [address] PCP - General Family Medicine 06/13/19 documented as of this encounter
--- OUTSIDE RECORDS SUMMARY | 2024-07-10 09:53 | XMS_ITS | Encounter Summary ---
Author Organization [facility] [place] [address] Care Team Providers Care Visual Merchandising Specialist Name Role Phone Heidy Boyd APRN Primary Care Provider [phone] Reason for Visit * Reason Comments Skin Check Encounter Details Date Type Department Care Team (Late st Contact Info) Description 04/18/2019 11:00 AM EDT Office Visit Dermatology at [address] [phone] Tyrell Lemon MD [address] [facility], [place] [address] Dermatitis Social History Tobacco Use Types Packs/Day Years Used Date Smoking Tobacco: Never Smokeless Tobacco: Never Sex and Gender Information Value Date Recorded Sex Assigned at Not on file Gender Identity Not on file Sexual Orientation Not on file documented as of this encounter Progress Notes * Tyrell Lemon MD - 04/18/2019 11:00 AM EDT Problem: Pruritic skin lesions/scalp lesions Ara is a 59-year-old woman who comes today with her daughter Marielos who is a veterinary pathologist. Patient states that about 4 5 years ago she was scratched by her cat in her scalp abscess and has had 2 itching spots up there. They do not heal. She is concerned about cancer. She like to have 1 of them biopsied. He also gets spots on her arms and also on her buttocks. These seem to come and go. She states that she has many allergies to dust and fragrances. She is very sensitive skin. She has hayfever but no asthma. She does not recall any history of childhood eczema. She states that she is allergic to latex as well. Admits that she is a fairly nervous person and does not like going outof the house. Her daughter accompanies her today to give her moral support going to the doctor's office. Physical examination reveals a pleasant 59-year-old woman who has 2 excoriation- like lesions present in the mid central parietal scalp on the left from the right of midline. She has 3 erythematous papules on the right lateral elbow which appear to be arthropod bites appearing and somewhat of the line and a breakfast, lunch, dinner array. She has a healing excoriation on the left lateral arm. Assessment plan: Excoriations, central parietal scalp 1. 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 2. Patient is very concerned about cancer so I agreed today to do a 4 mm punch biopsy from the siteon the left parietal scalp. Closure with 4-0 Prolene suture removal by patient's daughter in 1 week 3. Injury intralesional Kenalog injections 5 mg/mL given to both the sites to help reduce the itching and scratching the sites to allow them to heal. Erythematous papules 3 sites right elbow 1 excoriated 1. Patient may be can actually exposed to bites. I would wonder whether biting insect is causing the on again off again lesions on her torso and buttocks. 2. The patient's daughter is a veterinary pathologist and is also wonders about arthropod bites and will look into this at home. 3. Patient states that her home is a very ricki. Suggested trying to improve this situation. NB: Could consider Kenalog injections for any sites that do not heal and remain pruritic CC: Heidy Boyd APRN documented in this encounter Plan of Treatment Not on file documented as of this encounter Procedures Procedure Name Priority Date/Time Associated Diagnosis Comments SURGICAL PATHOLOGY REPORT Routine 04/18/2019 12:00 PM EDT documented in this encounter Results * Surgical Pathology Report (04/18/2019 12:00 PM EDT) Final Diagnosis [id number] ? Location: [facility] The signing pathologist has (i) examined the relevant preparation(s) for the specimen(s) and (ii) rendered or confirmed the diagnosis(es). . ?Surgical Pathology DIAGNOSIS Skin, left mid parietal scalp, punch ?? biopsy: - Erosion with impetiginized scale crust, dermal fibrosis ?? (see Discussion) Electronically signed by: ??Adam KENYON, PhD, Cony Verified: ??04/23/2019 ?Dermatopatholog ist Performed at: ??-[facility] [place] Dept. [place]ology, [place], [place] DISCUSSION The findings are consistent with excoriation. Carcinoma is not seen with multiple deeper levels examined. ADDITIONAL STUDIES Special stains are performed. ?? Block ? Stain ?Result ( Positive / Negative ) ??A1 ?PAS/F ? Negatie for fungi CLINICAL INFORMATION Specimen Submitted: A - Skin, l mid parietal scalp, punch (1) Clinical History and Diagnosis: Nonhealing excoriation. Excoriation, rule out BCCA/SCCA. Referring Identifier: ?(not provided) SPECIMEN PROCESSING A - Labeled/Fixative: Patient demographics, formalin. Quantity/Size: ??Single, 0.4 cm. Tissue Description: Punch of granular felix-wilson skin. Sections/Processi ng: Inked, bisected and entirely submitted in 1 cassette labeled A1. ??pps 04/23/2019 9:11 PM EDT [facility] SPECIMEN FROM SKIN / Unknown 04/18/2019 12:00 PM EDT 04/18/2019 12:00 PM EDT Tyrell Lemno MD PATHOLOGY/CYTOLOGY [facility] [place] [address] documented in this encounter Visit Diagnoses Diagnosis Dermatitis Contact dermatitis and other eczema, due to unspecified cause documented in this encounter Care Teams Visual Merchandising Specialist Relationship Specialty Start Date End Date Heidy Boyd, ERIC [address] [place] [address] PCP - General Family Medicine 04/20/16 06/12/19 documented as of this encounter
--- OUTSIDE RECORDS SUMMARY | 2024-07-10 09:53 | XMS_ITS | Encounter Summary ---
Author Organization [facility] Address [facility] [place] [address] Care Team Providers Care Orthodontist Small Business Owner Name Role Phone Marie Buckley APRN Primary Care Provider [phone] Reason for Visit * Reason Comments Follow-up Encounter Details Date Type Department Care Team (Late st Contact Info) Description 07/21/2019 2:30 PM EST Office Visit Dermatology at [address] [phone] Tyrell Lemon MD [address] [facility], [place] [address] Dermatitis Social History Tobacco Use Types Packs/Day Years Used Date Smoking Tobacco: Never Smokeless Tobacco: Never Sex and Gender Information Value Date Recorded Sex Assigned at Not on file Gender Identity Not on file Sexual Orientation Not on file documented as of this encounter Progress Notes * Tyrell Lemon MD - 07/21/2019 2:30 PM EST Problem: 1. Follow-up pruritic scalp lesion 2. Self excoriation disorder Ara follows up and is doing better. She is tolerating minocycline well and of the 3 cat scratch nonhealing sores, one has healed. She has 2 remaining present as diagrammed on the accompanying flowsheet. She complains of pain and throbbing in her right ear. She states her PCP is looked at this and not seen anything. Physical examination reveals 2+ scabs present one in the right frontal parietal scalp and one on the left posterior parietal scalp each about 8 mm in diameter. They are however smaller in size and have no dried serous scab present on today. Assessment and plan: Self excoriation disorder 1. Patient knows that she should not be drinking scratching but she continues to do so. 2. Recommend that she continue with the minocycline which does seem to be helping in terms of its anti-inflammatory effect. Continue her milligrams 1 p.o. twice daily dispense #60 with 1 refill 3. May continue to use cayden-Sporn ointment to sites 4. Recommend that she rub sites from the itch burn or sting do not day do not scratch and apply it try to pull this the top off. 5. Resume Benadryl 25 mg 1-2 p.o. nightly. Right ear throbbing and pain 1. Referral to Dr. Rk Berrios for ENT evaluation. CC: Marie Berrios MD documented in this encounter Plan of Treatment Not on file documented as of this encounter Visit Diagnoses Diagnosis Dermatitis Contact dermatitis and other eczema, due to unspecified cause documented in this encounter Care Teams Orthodontist Small Business Owner Relationship Specialty Start Date End Date Marie Buckley APRN [address] [place] [address] PCP - General Family Medicine 06/13/19 documented as of this encounter
--- OUTSIDE RECORDS SUMMARY | 2024-07-10 09:53 | XMS_ITS | Encounter Summary ---
Author Organization [facility] Address [facility] [place] [address] Care Team Providers Care Art Tracer Name Role Phone Marie Buckley APRN Primary Care Provider [phone] Reason for Visit * Reason Comments Follow-up Encounter Details Date Type Department Care Team (Late st Contact Info) Description 06/13/2019 3:00 PM EDT Office Visit Dermatology at [address] [phone] Tyrell Lemon MD [address] [facility], [place] [address] Dermatitis Social History Tobacco Use Types Packs/Day Years Used Date Smoking Tobacco: Never Smokeless Tobacco: Never Sex and Gender Information Value Date Recorded Sex Assigned at Not on file Gender Identity Not on file Sexual Orientation Not on file documented as of this encounter Progress Notes * Tyrell Lemon MD - 06/13/2019 3:00 PM EDT Problem: 1. Pruritic scalp lesions 2. Self excoriation disorder. Ara follows up after last being seen in March. Unfortunately she still digging at her scalp. Shestates she has to do this to relieve the pain at the specific spots there. She states that the Kenalog injections last visit gave her relief for only a few days, and then she was digging and scratching again. Physical examination reveals a pleasant 59-year-old woman who has excoriated papules at 3 sites within her scalp with dried blood on her hair. She has mild patch of eczematous dermatitis on the rightpalmar hand. Assessment and plan: Self excoriation disorder 1. Patient knows she should not be scratching and digging, but she must do that she states to relieve pain. 2. She is taking only a fraction of the medications listed on her med sheet she states. 3. Recommend a trial of a of minocycline taking 100 mg 1 p.o. nightly for 1 week then twice daily thereafter dispense #60 with 1 refill 4. Return to clinic in 1 month for repeat check. Sleeplessness 1. Patient states that she goes through periods of time when she is unable to sleep for several number days and then a number of days where she is very very sleepy and cannot wake up. 2. She is reluctant to consider sleep studies as recommended by her PCP because she is concerned that the tape from the leads in her scalp will irritate her skin 3. Recommended trial of Benadryl 25mg 1-2 could even take 3 at bedtime to help her sleep. Note 1/2-hour spent with patient one half spent counseling. CC: Marie Buckley APRN documented in this encounter Plan of Treatment Not on file documented as of this encounter Visit Diagnoses Diagnosis Dermatitis Contact dermatitis and other eczema, due to unspecified cause documented in this encounter Care Teams Art Tracer Relationship Specialty Start Date End Date Marie Buckley APRN [address] [place] [address] PCP - General Family Medicine 06/13/19 documented as of this encounter
--- OUTSIDE RECORDS SUMMARY | 2024-07-10 09:53 | XMS_ITS | Clinical Summary ---
Author Organization [facility] Address [facility] [place] [address] Care Team Providers Care Network Director Name Role Phone Marie Buckley ERIC Primary Care Provider [phone] Allergies Active Allergy Reactions Criticality Noted Date Comments Gloves, Latex CIS - Localized Reaction Penicillins Tree Nut Medium *walnuts* mouth swelling Medications Medication Sig Dispensed Refills Start Date End Date Status PARoxetine (PAXIL) 20 mg tablet 10/14/2008 Active omeprazole (PRILOSEC) 20 mg capsule 10/14/2008 Active GLUCOSAMINE SULFATE (GLUCOSAMINE ORAL) 10/14/2008 Active Flaxseed Oil 1,000 mg Cap 10/14/2008 Active [place]-3 Fatty Acids (FISH OIL) 500 mg Cap 10/14/2008 Active loratadine (CLARITIN) 10 mg tablet 10/14/2008 Active FLUTICASONE PROPIONATE (FLONASE NASL) 10/14/2008 Active ibuprofen (ADVIL;MOTRIN) 600 mg tablet 600MG = 1 Tablet(s), PO, Q6H,PRN 10/14/2008 Active gabapentin (NEURONTIN) 100 mg Capsule 0 07/14/2016 Active LORazepam (ATIVAN) 0.5 mg Tablet 0 06/11/2016 Active PROAIR HFA 90 mcg/actuation HFA Aerosol Inhaler Reported on 08/24/2016 0 03/08/2016 Active nystatin (MYCOSTATIN) Cream 0 10/30/2018 Active triamcinolone (KENALOG) 0.1 % Cream 0 10/30/2018 Active pantoprazole (PROTONIX) 40 mg Tablet, Delayed Release (E.C.) take 1 tablet by mouth once daily 0 06/05/2019 Active minocycline (MINOCIN;DYNACIN) 100 mg Capsule Take one tablet by mouth at HS for 1 wk then twice daily 60 capsule 1 06/13/2019 Active buPROPion XL (WELLBUTRIN XL) 300 mg Tablet Extended Release 24 hr 0 07/02/2019 Active Active Problems Problem Noted Date Diagnosed Date Gastroesophageal reflux 10/04/2020 Status post PRETTY-BSO 10/04/2020 Anxiety 10/04/2020 DIFFICULT AIRWAY 10/30/2006 Overview (10/31/2010): Immunizations Name Administration Dates Next Due Influenza Vaccine, Whole 06/20/2006 Family History Medical History Relation Comments Celiac Disease Brother 2 Ovarian Cancer Maternal Grandmother Relation Status Comments Brother 1 Alive Brother 2 Alive Father Alive Maternal Grandmother Mother (Age 79) Social History Tobacco Use Types Packs/Day Years Used Date Smoking Tobacco: Never Smokeless Tobacco: Never Alcohol Use Standard Drinks/Week Comments Not Currently 0 (1 standard drink = 0.6 oz pur e alcohol) Sex and Gender Information Value Date Recorded Sex Assigned at Not on file Gender Identity Not on file Sexual Orientation Not on file Last Filed Vital Signs Vital Sign Reading [...] Mass Index 29.95 10/04/2020 8:21 PM EST Plan of Treatment Health Maintenance Due Date Last Done Comments CT Colonography 1958 Colonoscopy 1958 Colorectal Cancer Screening 1958 FIT DNA 1958 FIT 1958 Sigmoidoscopy (10 year) with FIT yearly 1958 Sigmoidoscopy 1958 Hepatitis C Screening 02/23/1976 Tetanus/Diphtheria/Pertussis Vaccines (1 - Tdap) 02/22 HPV test 02/23/1988 PAP Smear 02/23/1988 Breast Cancer Share Decision Needed 1998 Breast Cancer screening 1998 Zoster vaccine (1 of 2) 02/23/2008 Advance Directive 2013 Bone Density Scan 2023 Pneumoccocal Vaccine: 65+ (1 of 1 - PCV) 2023 Covid-19 Vaccine (1 - 2023-25 season) 2024 Influenza (Flu) vaccine (1 o f 1 - Influenza standard series) 04/20/2024 06/20/2006 Diabetes Screening (HgbA1C or Glucose) Discontinued Procedures Procedure Name Priority Date/Time Associated Diagnosis Comments COMPREHENSIVE METABOLIC PANEL STAT 10/04/2020 9:05 PM EST from Last 3 Months or Most Recently Relevant to Health Maintenance Results * Comprehensive metabolic panel (non-fasting) (10/04/2020 9:05 PM EST) Glucose 93 65 - 199 mg/dL [facility] Comment:Diabetes: >=200 mg/d L plus symptoms Blood Urea Nitrogen 15 8 - 18 mg/dL [facility] Creatinine 0.93 0.70 - 1.20 mg/dL [facility] Sodium 138 135 - 145 mmol/L [facility] Potassium 4.0 3.5 - 5.0 mmol/L [facility] Comment: Please note: ??Patients with WBC >100,000 may have falsely elevated Potassium levels. ??For accurate Potassium quantification in these patients send serum separator tube (gold top) for subsequent determinations. ??Contact the Clinical Chemistry Laboratory if there are any questions. Chloride 103 98 - 107 mmol/L [facility] Carbon Dioxide 22 22 - 31 mmol/L [facility] Anion Gap 13 5 - 15 mmol/L [facility] Calcium 9.9 8.5 - 10.5 mg/dL [facility] Protein, Total 7.7 6.1 - 8.0 gm/dL [facility] Albumin 4.4 3.2 - 5.2 gm/dL [facility] Aspartate Aminotransferase 21 0 - 30 unit/L [facility] Alanine Aminotransferase 17 0 - 30 unit/L [facility] Alkaline Phosphatase 92 35 - 105 unit/L [facility] Bilirubin, Total 0.6 0.2 - 1.3 mg/dL [facility] Est Glomerular Filtration Rate 66 >=60 mL/min/1. 73 m?? [facility] Comment: This patient? s estimated glomerular [...] Lab Patrice Diane MD CHEMISTRY ORDERABL ES [facility] [place] [address] from Last 3 Months or Most Recently Relevant to Health Maintenance Care Teams Network Director Relationship Specialty Start Date End Date Marie Buckley APRN [address] [place] [id number] PCP - General Family Medicine 06/13/19
--- OUTSIDE RECORDS SUMMARY | 2024-07-10 09:53 | XMS_ITS | Encounter Summary ---
Author Organization [facility] Address [facility] [place] [place] [address] Care Team Providers Care Scalehouse Attendant Name Role Phone Heidy Boyd APRN Primary Care Provider [phone] Reason for Visit * Reason Comments Establish Care Rectal Problems rectocele, difficult y w/BM's * Consultation (Routine) - Closed Specialty Diagnoses / Procedures Referred By Contac t Referred To Contact Obstetrics and Gynecology Diagnoses HX of rectocele; difficulty w/ BM's Heidy Boyd APRN [address] [place] [address] [facility] [employer] [address] [place] [address] Referral ID Status Reason Start Date Expiration Date V isits Requested Visits Authorized [id number] Closed Consult, Test & Treat Connection Center 04/20/2016 04/20/2017 1 1 Encounter Details Date Type Department Care Team (Late st Contact Info) Description 08/24/2016 11:00 AM EST Office Visit Obstetrics [place] [address] Tobin Munoz MD [facility] DR OBSTETRICS [place] [address] Rectocele; JACKELIN (stress urinary incontinence, female) Social History Tobacco Use Types Packs/Day Years Used Date Smoking Tobacco: Never Smokeless Tobacco: Never Sex and Gender Information Value Date Recorded Sex Assigned at Not on file Gender Identity Not on file Sexual Orientation Not on file documented as of this encounter Last Filed Vital Signs Vital Sign Reading Time Taken Comments Blood Pressure 130/88 08/24/2016 11:04 AM EST Pulse 72 08/24/2016 11:04 AM EST Temperature - - Respiratory Rate 20 08/24/2016 11:04 AM EST Oxygen Saturation 99% 08/24/2016 11:04 AM EST Inhaled Oxygen Concentration - - Weight 88.9 kg (196 lb) 08/24/2016 11:04 AM EST Height 165.1 cm (5' 5) 08/24/2016 11:04 AM EST Body Mass Index 32.62 08/24/2016 11:04 AM EST documented in this encounter Progress Notes * Tobin Munoz MD - 08/24/2016 11:00 AM EST Female Pelvic Medicine and Reconstructive Surgery @ [facility] Patient Name: Ara Lama Patient Primary Care Provider: Heidy Boyd APRN Patient Active Problem List Diagnosis Code ??? DIFFICULT AIRWAY T88.4XXA Chief Complaint: rectocele History of Present Illness: Ms. Lama is a 56 y.o. old para 3 woman, seen at the kind request of Heidy Boyd APRN. She presents for evaluation and assessment of a rectocele that has been present for several years but has been much more bothersome over the past 6 months. She notes a protrusion at the vagina and has to splint at the perineum to move her bowels. She does take psyllium seed to help keep the bowels regular but still finds that they are hard pellets. She is able to have a BM daily. She does also note urinary incontinence with coughing, laughing and sneezing. Goals for this visit 1. Treat the protrusion. 2. Move the bowels more easily 3. Decrease urine leakage. Urinary tract history Patient denies history of recurrent urinary tract infection. Patient denies history of pyelonephritis. Patient denies history of urinary tract abnormality. Patient denies history of nephrolithiasis. Patient denies history of hematuria. Bladder irritants: Fluid intake: Coffee, almond milk, boost, gatorade Caffeine intake: 1 + large coffee, has cut back on soda Cigarette smoking (packs, time, if quit when): no Alcohol: no Bladder Function Urinary incontinence: yes No. episodes: With cough, laugh, sneeze Pad use (per day): no Pad type: n/a Daytime voids: Every few hours Nocturia: Can go up to every 2 hours Previous urinary incontinence treatment (Medical/Behavioral/Surgical): no Storage symptoms Urinary frequency x Nocturia x Stress urinary incontinence - leakage with exertion, cough/sneeze Urge urinary incontinence - leakage preceded immediately by urge to void Noctural enuresis - NOT IN ASSOCIATION WITH URGE Continuous urinary leakage Other: (e,g. giggle, intercourse-related) Bladder sensation x Normal - aware of filling and increased sensation up to desire to void Increased - feels an early and persistent need to void Reduced - aware of filling but NOT definite desire to void Absent - NO sensation of filling or need to void Non-specific - No specific bladder symptoms during filling or void Voiding symptoms None x Slow stream Spraying Intermittent stream - stop/start on > 1 occasion during void Straining - muscular effort to initiate, maintain OR improve stream Terminal dribble - prolonged final part of void Feeling of incomplete emptying Pelvic Organ Prolapse (POP) Any personally see or feel a vaginal bulge? yes What precipitates prolapse or symptoms of prolapse? When has to move her bowels Previous treatment for POP (physical therapy, pessary, surgery)?: no Bowel Function Fecal incontinence (yes/no): no Number of fecal incontinent episodes (day/week): n/a Number of bowel movements (day/week): daily Defecatory Dysfunction: Symptom Presence Symptom Presence NONE Incomplete Emptying yes Straining x Infrequent stools (<3 week) Splinting x Abdominal discomfort Loose stools Defecatory urgency Hard stools x Other Sexual Function Active?: no Pain with intercourse?: n/a If yes, insertional/Deep? n/a Desire to retain sexual function? n/a Past Medical History Diagnosis Date ??? Asthma ??? Depression ??? GERD (gastroesophageal reflux disease) ??? Obesity ??? Osteopenia Past Surgical History Procedure Laterality Date ??? Wily and bso 10/30/2006 For large fibroids, Dr. Deven Alegre ??? [place] tooth extraction ??? Breast surgery Obstetric History No data available Outpatient Prescriptions Marked as Taking for the 08/24/16 encounter (Office Visit) with Tobin Munoz MD Medication Sig Dispense Refill ??? buPROPion (WELLBUTRIN XL) 300 mg Tablet Sustained Release 24 hr 0 ??? gabapentin (NEURONTIN) 100 mg Capsule 0 ??? LORazepam (ATIVAN) 0.5 mg Tablet 0 ??? PARoxetine (PAXIL) 20 mg tablet ??? omeprazole (PRILOSEC) 20 mg capsule ??? GLUCOSAMINE SULFATE (GLUCOSAMINE ORAL) ??? Flaxseed Oil 1,000 mg Cap ??? [place]-3 Fatty Acids (FISH OIL) 500 mg Cap ??? loratadine (CLARITIN) 10 mg tablet ??? ibuprofen (ADVIL;MOTRIN) 600 mg tablet 600MG = 1 Tablet(s), PO, Q6H,PRN Allergies Allergen Reactions ??? Tree Nut *walnuts* mouth swelling ??? Gloves, Latex CIS - Localized Reaction ??? Penicillins Social History Social History ??? Marital status: Spouse name: N/A ??? Number of children: N/A ??? Years of education: N/A Occupational History ??? Not on file. Social History Main Topics ??? Smoking status: Never Smoker ??? Smokeless tobacco: Never Used ??? Alcohol use Not on file ??? Drug use: Not on file ??? Sexual activity: Not on file Other Topics Concern ??? Not on file Social History Narrative ??? No narrative on file No family history on file. ROS: Review of all other systems negative except for those mentioned above or indicated below: System Symptom Presence Constitutional Weight Loss Weight gain Eyes History of glaucoma ENT/Mouth Mouth sores/Dry mouth Cardiovascular Chest pain Leg swelling Respiratory Wheezing + exercise induced asthma SOB GI Nausea/vomiting mild Abdominal pain Skin/Breast Breast masses Rash/ulcer Musculoskeletal Muscle weakness Trouble Walking Neurological Dizziness/falling Dizzy at times Numbness Psychiatric Depression x Anxiety Endocrine Abnormal thirst Hot flashes + Hematologic Frequent bruising no History of blood transfusions no Blood clots (DVT / PE) no Prior problems w/ anesthesia Possible difficult airway Outside medical records reviewed: I reviewed scanned records from Heidy Boyd APRN Data reviewed (images/urodynamic studies): To further delineate patient's urinary symptoms, a urinedip test and postvoid residual via bladder scanner were obtained. Results for orders placed or performed in visit on 08/24/16 POCT urine dipstick Result Value Ref Range POC Sp Lima 1.005 1.002 - 1.030 POC pH, UA 8 5.0 - 8.5 POC Leuk, UA Neg. Negative - Negative POC Nitrite, UA Neg. Negative - Negative POC Protein, UA Neg. Negative - Negative mg/dL POC Glucose, UA Norm. Normal - Normal mg/dL POC Ketone, UA Neg. Negative - Negative POC Urobil, UA Norm. 0.2 - 1.0 mg/dL POC Bili, UA Neg. Negative - Negative POC Blood, UA Neg. Negative - Negative melissa/uL Bladder Scanner Result Value Ref Range Bladder Scan (mL) 52 mL OBJECTIVE: BP 130/88 Pulse 72 Resp 20 Ht 165.1 cm (5' 5) Wt 88.9 kg (196 lb) SpO2 99% BMI 32.62 kg/m2 General: normal appearing female, pleasant mood, normal speech Skin: skin of abdomen/pelvis normal Respiratory: clear to auscultation bilaterally Neuro: no paraspinous tenderness; saddle sensory function (S2-4) intact in the pelvic area to touch Cardiac: regular rate and rhythm, no appreciated murmurs Gastrointestinal: no palpable masses/organomegaly, soft/nontender, no appreciable hernia Musculoskeletal: levator ani tone (0-5): 2, levator ani contraction (0-5): 1, no levator tenderness; lower extremity motor 5/5 bilaterally Pelvic: Cough stress test (empty supine): negative External Genitalia: Vulva, Ewen's and Bartholin glands normal, urethra without tenderness or mass Vagina: With Valsalva, the anterior vaginal wall comes 2 cm above the hymen, the posterior vagina wall comes to the hymen, and the cervix/apex comes 7 cm above the hymen Atrophic epithelium (yes/no)?: no Discharge?: no Cervix: absent Bimanual (uterus/adnexa): stool at the cuff, no masses, non-tender Rectovaginal: Enterocele: no Rectocele: yes Anal sphincter: Resting tone: 4/5 Anal wink: normal External anal sphincter: intact POP Q Measurements: Aa -2 Ba -2 C -7 GH 3,4 PB 2.5, 2.5 TVL 9 Ap 0 Bp 0 D -- Impression: Ms. Lama is a .56 y.o. woman with: ?? Rectocele, symptomatic. ?? Stress urinary incontinence. Recommendations: I reviewed the anatomy and physiology of pelvic support disorders, urinary incontinence. We discussed options for management including: Continued observation, pelvic floor exercises (supervised or unsupervised), pessary and/or surgery. Based on the patients expressed goals for management I have recommended the following: ?? She desires to proceed with posterior colporrhaphy and a mid-urethral sling. We discussed the surgery for stress urinary incontinence would involve a sling being placed at the level of the midurethra with permanent mesh materia CONSENT: I discussed the planned procedure with the patient, including risks and benefits. We reviewed the consent form, which the patient has signed. As part of our discussion, we reviewed risks including but not limited to infection, bleeding, injury to bladder, urethra, ureters, bowel, possible fistula formation. We discussed that we perform cystoscopy to assure no urinary tract injury prior to ending the procedure. We discussed rare risks of nerve injury due to positioning, retraction, or sutures. We also reviewed potential changes in bladder, bowel and sexual function after prolapse and anti-incontinence operations. We reviewed risks of mesh erosion that can occur even many years out from surgery and risks of persistent pain. We discussed the May 2008 and February 2011 FDA warning regarding mesh placed transvaginally for prolapse repairs and the different applications for mesh in the pelvic area carry different risks. We reviewed that the risks of mesh erosion with a sling are ~3%. (x) ACOG or other informational pamphlets given to patient TOBIN MUNOZ MD Division of Female Pelvic Medicine/Reconstructive Surgery CC: Heidy Boyd APRN documented in this encounter Plan of Treatment Not on file documented as of this encounter Procedures Procedure Name Priority Date/Time Associated Diagnosis Comments BLADDER SCANNER Routine 08/24/2016 JACKELIN (stress urinary incontinence, female) POCT URINE DIPSTICK Routine 08/24/2016 JACKELIN (stress urinary incontinence, female) documented in this encounter Results * Bladder Scanner (08/24/2016) Bladder Scan (mL) 52 mL Tobin Munoz MD URO PROC W/O RFL ORD ERABLES * POCT urine dipstick (08/24/2016) POC Sp Lima 1.005 1.002 - 1.030 POC pH, UA 8 5.0 - 8.5 POC Leuk, UA Neg. Negative - Negative POC Nitrite, UA Neg. Negative - Negative POC Protein, UA Neg. Negative - Negative mg/dL POC Glucose, UA Norm. Normal - Normal mg/dL POC Ketone, UA Neg. Negative - Negative POC Urobil, UA Norm. 0.2 - 1.0 mg/dL POC Bili, UA Neg. Negative - Negative POC Blood, UA Neg. Negative - Negative melissa/uL Tobin Munoz MD POINT OF CARE TEST O RDERABLES documented in this encounter Visit Diagnoses Diagnosis Rectocele JACKELIN (stress urinary incontinence, female) Female stress incontinence documented in this encounter Care Teams Scalehouse Attendant Relationship Specialty Start Date End Date Heidy Boyd, ERIC [address] [place] [address] PCP - General Family Medicine 04/20/16 06/12/19 documented as of this encounter
--- OUTSIDE RECORDS SUMMARY | 2024-07-10 09:53 | XMS_ITS | Encounter Summary ---
Author Organization [facility] [place] [address] [place] [address] Care Team Providers Care Cephalometric Analyst Name Role Phone Heidy Boyd APRN Primary Care Provider Encounter Details Date Type Department Care Team (Late st Contact Info) Description 12/14/2016 Telephone Obstetrics [place] [address] Wilner Munoz MD [facility] [address] OBST[place] [address] Social History Tobacco Use Types Packs/Day Years Used Date Smoking Tobacco: Never Smokeless Tobacco: Never Sex and Gender Information Value Date Recorded Sex Assigned at Not on file Gender Identity Not on file Sexual Orientation Not on file documented as of this encounter Miscellaneous Notes * Telephone Encounter - Megan Lopez - 12/14/2016 4:33 PM EDT 12/14/16 called patient as she cancelled her preop appointment via the [facility] system. Pt does not want to proceed with surgery. She will call when and if she desires to reschedule. documented in this encounter Plan of Treatment Not on file documented as of this encounter Visit Diagnoses Not on filedocumented in this encounter Care Teams Cephalometric Analyst Relationship Specialty Start Date End Date Heidy Boyd APRN [address] [place] [address] [place] [address] PCP - General Family Medicine 04/20/16 06/12/19 documented as of this encounter
--- OUTSIDE RECORDS SUMMARY | 2024-07-10 09:53 | XMS_ITS | Clinical Summary ---
Author Organization [facility] Address [address] [place] [address] Care Team Providers Care Radiation Control Health Physicist Name Role Phone Esther Redd Alfreda JOINT CLEANING MACHINE OPERATOR Primary Care Provider [phone] Social History Tobacco Use Types Packs/Day Years Used Date Smoking Tobacco: Never Assessed Interpersonal Safety Answer Date Record ed Physically Hurt Never 03/21/2020 Verbally Threaten Not on file 03/21/2020 Comments Unknown Sex and Gender Information Value Date Recorded Sex Assigned at Not on file Legal Sex Female 18:26 EST Gender Identity Not on file Sexual Orientation Not on file Plan of Treatment Health Maintenance Due Date Last Done Comments Hepatitis C Screen 1960 Fall Risk Screening 2023 COVID-19 Vaccine (2023- season) 2024 RSV Immunization ( o r 60+ Years) (1 - 1-dose 75+ series) 2033 Insurance MEDICAID [place] Care Teams Radiation Control Health Physicist Relationship Specialty Start Date End Date Esther Redd NP [address] [place] [address] PCP - General 05/24/11
--- OUTSIDE RECORDS SUMMARY | 2024-07-10 09:54 | XMS_ITS | Referral Summary ---
Author Organization [facility] Address [address] [place] [address] Care Team Providers Care Sales Leader Name Role Phone Esther Redd Alfreda CHIEF OPERATOR HYDROFORMER Primary Care Provider [phone] Social History Tobacco Use Types Packs/Day Years Used Date Smoking Tobacco: Never Assessed Interpersonal Safety Answer Date Record ed Physically Hurt Never 03/21/2020 Verbally Threaten Not on file 03/21/2020 Comments Unknown Sex and Gender Information Value Date Recorded Sex Assigned at Not on file Legal Sex Female 18:26 EST Gender Identity Not on file Sexual Orientation Not on file Plan of Treatment Not on file Insurance MEDICAID [place] Care Teams Sales Leader Relationship Specialty Start Date End Date Esther Redd, SOFIA [address] [place] [address] PCP - General 05/24/11
--- OUTSIDE RECORDS SUMMARY | 2024-07-10 09:54 | XMS_ITS | Encounter Summary ---
Author Organization [facility] Address [address] [place] [address] Care Team Providers Care Instrument Technologist Name Role Phone Unavailable Primary Care Provider Unavailabl e Encounter Details Date Type Department Care Team (Late st Contact Info) Description 05/22/2011 Results Only [facility] Services - [facility] ([facility]) [address] [place] [address] Ivan Connell MD [address] [place] [id number] Social History Tobacco Use Types Packs/Day Years Used Date Smoking Tobacco: Never Assessed Comments Unknown Sex and Gender Information Value Date Recorded Sex Assigned at Not on file Legal Sex Female 18:26 EST Gender Identity Not on file Sexual Orientation Not on file documented as of this encounter Plan of Treatment Not on file documented as of this encounter Procedures Procedure Name Priority Date/Time Associated Diagnosis Comments SURGICAL PATHOLOGY Routine 05/22/2011 0:00 EDT documented in this encounter Results * SURGICAL PATHOLOGY (05/22/2011 0:00 EDT) Pathology Report: SURGICAL PATHOLOGY REPORT ? Reports generated via electronic interface contain original data; ? however they are lacking the format of the original report. ? Caution should be taken when reading/interpreting unformatted reports. ? Name: ? NILESH, ARA ? Accession #: ? [id number] ? : ? 1960 (Age: 51) ??F ? Collect Date: ? 05/22/2011 ? Location: ? [facility] ? Receive Date: ? 05/22/2011 ? Provider: IVAN CONNELL MD ? Copy to: LEONA L STRAUSS SECONDARY CONNECTOR ARMATURE ? MATY W BESCH SECONDARY CONNECTOR ARMATURE ? Final Pathologic Diagnosis: ? Breast, left, 4 o'clock, 8 cm from nipple, excisional biopsy: ? 1. ?Fibrocystic changes including: ? - Columnar cell change and columnar cell hyperplasia. See comment. ? - Sclerosing adenosis. ?- Focal fibroadenomatoid change. ? - Apocrine metaplasia. ?- Interlobular fibrosis. ? - Microcyst formation. ? 2. ?? Microcalcifications are identified in association with benign ? lobules. ? Comment: ? Histologic examination demonstrates a focus within these sections that ? could be consistent with previous biopsy site changes. Correlation with the ? clinical impression and radiologic findings is recommended to determine the ? anatomic relationship between this region and the previously biopsied region ? ([id number]). Bolt Sorter sections of this case have been reviewed at ? intradepartmental consultation conference. ? Document reviewed and electronically signed by: ? ANA REIS MD ? Report ??Date: 05/25/2011 14:54 ? By the signature above, the attending physician certifies that he/she has ? personally conducted a gross and/or microscopic examination of the described ? specimens and rendered or confirmed the above diagnosis. ? Specimen(s) Received: ? Left breast 4 o'clock, 8 cm from nipple, long suture lateral, short suture superior ? Clinical History: ? Abn mammo/US ? Gross Description: ? Received in formalin labelled [place], Ara and left breast 4 o'clock, 8 cm from nipple is a 10.6 gram portion of fibrofatty tissue, oriented with a ? short suture on superior and a long suture on lateral, as per the requisition. ?? The specimen is 4.0 cm from medial to lateral by 3.0 cm from superior to ? inferior by 1.5 cm from anterior to posterior. ??The specimen is inked as ? follows: anterior-yellow, posterior-black, superior-blue, inferior-green, ? medial-red, lateral-orange. ??The specimen is serially sectioned from medial ? (level 1) to lateral (level 11). ??In levels 4-7 there is a 1.5 x 0.8 x 0.8 cm ?? ill-defined area of firm-white fibrous tissues that have several indwelling ? cystic structures which range from 0.2 to 0.7 cm in greatest dimension. ??This ?? firm, fibrous tissue abuts the anterior margin, is 0.2 cm from the posterior ? margin, 0.7 cm from the superior and inferior margins and greater than 1.0 cm ?? from the medial and lateral margins. ??The remainder of the specimen is composed of predominantly yellow, lobulated adipose tissue with a small amount of ? intervening soft fibrous tissue and no additional lesions or masses are ? discernible. ??The specimen is entirely submitted as follows: ? BLOCK LLANOS ? A1 ?Level 1 (medial), perpendicular sections ? A2 ?Level 2 ? A3 ?Level 3 ? A4 ?Level 4 ? A5 ?Level 5 ? A6 ?Level 6 ? A7 ?Level 7 ? A8 ?Level 8 ? A9 ?Level 9 ? A10 ?Level 10 ? A11 ?Level 11 (lateral), perpendicular sections ? (L. Chavez)/mpl ? Time in formalin: 10/3/11 at 0835 hours ? Time out of formalin: 10/4/11 at 1900 hours ? End of Report ? JEFFREY SHIRLEY 05/22/2011 05/22/2011 21: 59 EDT us Ivan Connell MD PATHOLOGY ORDERABLES Final Result Performing Organization Address City/State/[facility] Co de Phone Number JEFFREY SHIRLEY [address] [place] [address] documented in this encounter Visit Diagnoses Not on filedocumented in this encounter
--- OUTSIDE RECORDS SUMMARY | 2024-07-10 09:54 | XMS_ITS | Encounter Summary ---
Author Organization [facility] Address [address] [place] [address] Care Team Providers Care Calculating Machine Operator Name Role Phone Unavailable Primary Care Provider Unavailabl e Encounter Details Date Type Department Care Team (Late st Contact Info) Description 09/12/[address] [facility] - Maple conversion [address] [place] [address] Maxi Gutierrez MD [address] [place] [phone] Social History Tobacco Use Types Packs/Day Years [...] Date/Time Associated Diagnosis Comments SURGICAL PATHOLOGY Routine 09/12/2000 0:00 EST documented in this encounter Results * SURGICAL PATHOLOGY (09/12/2000 0:00 EST) Pathology Report: SURGICAL PATHOLOGY REPORT Reports generated via electronic interface contain original data; however they are lacking the format of the original report. Caution should be taken when reading/interpreti ng unformatted reports. Name: ? ARA LAMA ? Accession #: ? [id number] ? : ? 1960 (Age: 40) ??F ? Collect Date: ? 09/12/2000 ? Location: ? [facility] ? Receive Date: ? 09/13/2000 ? Provider: SANFORD GUTIERREZ MD Copy to: ANGELES STRAUSS COOK LARDER ? Final Pathologic Diagnosis: ? Breast, left, excisional biopsy: 1. ?Nodular fibrocystic changes (blocks A14, A16-18, A25-26). 2. ?Fibrocystic changes including: ? - Microcyst formation. - Interlobular fibrosis. - Moderate epithelial hyperplasia (block A8). - Sclerosing adenosis (block A21). - Apocrine metaplasia. 3. ?Microcalcificati ons associated with mild epithelial hyperplasia (block A12). Document reviewed and electronically signed by: Lida Arce MD Report ??Date: 09/17/2000 15:22 By the signature above, the attending physician certifies that he/she has personally conducted a gross and/or microscopic examination of the described specimens and rendered or confirmed the above diagnosis. Specimen(s) Received: ? Lt breast bx ??single suture superior, double suture deep Clinical History: ? Density L breast LIQ Gross Description: ? Received in formalin labelled Kelby and left breast bx ??double suture deep, single suture superior is a felix-yellow to white fibrofatty ovoid soft tissue which weighs 28.7 grams and measures 5.5 cm anterior to posterior, 4.0 cm superior to inferior, and 2.4 cm medial to lateral. ??There is a wire needle localization entering the anterior aspect. ??There is a single and double suture designating the superior and deep margins, respectively, as per the accompanying requisition slip. ??Prior to sectioning, the superior aspect is inked red, inferior yellow, medial blue, lateral black, and anterior and posterior aspects inked green. ??The specimen is serially sectioned anterior to posterior revealing a predominantly yellow lobulated cut surface with a moderate amount of dense felix-white firm fibrous tissues. ??Within the fibrous tissues, there are multiple minute cystic structures. ??In the posterior one-half of the specimen adjacent to the lateral margin there is a felix-white cystic 1.1 x 0.8 x 0.7 cm mass which measures 0.2 cm from the lateral margin, 0.6 cm from the medial margin, 1.5 cm from the inferior margin, 1.2 cm from the superior margin, and greater than 1.0 cm from the anterior and posterior margins. ??Also received is a felix-yellow irregular 2.2 x 1.5 x 1.0 cm portion of adipose tissue which is received free floating within the container. ??A radiograph accompanies the specimen. ??The specimen is serially sectioned into thirteen levels and is entirely submitted as follows. BLOCK LLANOS A1 ?Level 1 ??anterior margin, reverse en face A2-A3 ?Level 2 ??bisected, superior to inferior A4-A5 ?Level 3 ??bisected, superior to inferior A6-A7 ?Level 4 ??bisected, superior to inferior A8-A9 ?Level 5 ??bisected, superior to inferior A10-A11 ? Level 6 ??bisected, superior to inferior A12-A13 ? Level 7 ??bisected, superior to inferior A14-A15 ? Level 8 ??bisected, superior to inferior (A14 has the portion of the nodule) A16-A17 ? Level 9 ??bisected, superior to inferior to include the nodule A18-A19 ? Level 10 ??bisected, superior to inferior (levels contain nodule) A20-A21 ? Level 11 ??bisected, superior to inferior A22-A23 ? Level 12 ??bisected, superior to inferior A24 ?Level 13 ??posterior margin, reverse en face A25-A26 ? Separately received portion of fibroadipose tissue, longitudinally bisected (Jackson Duarte-JOSE MARIA)/ljn ? End of Report [facility] 09/12/2000 09/13/2000 9:2 6 EST us Maxi Gutierrez MD PATHOLOGY ORDERABLES Final Res ult [facility] [address] [place] [address] documented in this encounter Visit Diagnoses Not on filedocumented in this encounter
--- OUTSIDE RECORDS SUMMARY | 2024-07-10 09:54 | XMS_ITS | Encounter Summary ---
Author Organization [facility] Address [address] [place] [address] Care Team Providers Care Printed Circuit Boards Plasma Etcher Name Role Phone ReddEsther Alfreda NUCLEAR OPERATIONS SPECIALIST Primary Care Provider Encounter Details Date Type Department Care Team (Late st Contact Info) Description 12/06/2020 Lab Requisition [facility] Pathology & Laboratory Medicine - [facility] [address] [place] [address] Rajan Ko MD [address] [place] [address] [address] [place], [place] [id number] Encounter for screening for malignant neoplasm of colon Social History Tobacco Use Types Packs/Day Years [...] Priority Date/Time Associated Diagnosis Comments SURGICAL PATHOLOGY Today 12/06/2020 8:20 EDT Encounter for screening for malignant neoplasm of colon documented in this encounter Results * SURGICAL PATHOLOGY (12/06/2020 8:20 EDT) Final Diagnosis A. STOMACH, ANTRUM, BIOPSY: - Fundic and transitional mucosa with no significant diagnostic abnormalities. - Negative for Helicobacter pylori on H&E stained sections. B. STOMACH, POLYPS, BIOPSY: - Fundic gland polyps. C. STOMACH, CARDIA, BIOPSY: - Gastric fundic mucosa with no significant diagnostic abnormalities. - Negative for Helicobacter pylori on H&E stained sections. D. GASTROESOPHAGEAL JUNCTION, BIOPSY: - Gastric fundic-type mucosa with reactive changes. - Negative for intestinal metaplasia and dysplasia. 12/07/2020 10:41 [facility] Attestation By the signature below, the attending physician certifies that they have 1) personally conducted a gross and/or microscopic examination of the described specimen(s), and/or personally interpreted the results of laboratory testing of the described specimen(s), and 2) personally rendered or confirmed the above diagnosis. 12/07/2020 10:41 [facility] at 1041 Clinical History GERD; screening for colon cancer 12/07/2020 10:41 [facility] Gross Description A. Received in formalin labelled with proper patient identification (initials S, V) and Bx's antrum are 2 fragments of felix soft tissue (0.3 x 0.3 x 0.2 cm and 0.4 x 0.3 x 0.2 cm). The specimen is entirely submitted in A1. B. Received in formalin labelled with proper patient identification (initials S, V) and gastric polyps are 2 fragments of pink-felix soft tissue (each averaging 0.2 x 0.2 x 0.2 cm). The specimen is entirely submitted in B1. C. Received in formalin labelled with proper patient identification (initials S, V) and Bx's cardia is a single fragment of pink-felix soft tissue (0.3 x 0.3 x 0.3 cm). The specimen is entirely submitted in C1. D. Received in formalin labelled with proper patient identification (initials S, V) and Bx's GE junction is a single fragment of felix-bustillos soft tissue (0.3 x 0.2 x 0.2 cm). The specimen is entirely submitted in D1. ASPEN CONWAY(ASCP) 12/06/2020 17:22 12/07/2020 10:41 [facility] Performing Lab [facility] 10:41 EDT [facility] Scanned Images 12/07/2020 10:41 EDT [facility] Tissue ENTIRE ESOPHAGUS / Unknown 12/06/2020 8:20 EDT 12/06/2020 16:50 EDT Tissue specimen (specimen) SPECIMEN FROM STOMACH OBTAINED BY TOTAL GASTRECTOMY / Unknown 12/06/2020 8:20 EDT 12/06/2020 16:50 EDT Tissue specimen (specimen) STOMACH STRUCTURE / Unknown 12/06/2020 8:20 EDT 12/06/2020 16:50 EDT Tissue specimen (specimen) ESOPHAGEAL STRUCTURE / Unknown 12/06/2020 8:20 EDT 12/06/2020 16:50 EDT us Rajan Ko MD PATHOLOGY ORDERABLES Fin al Result Performing Organization Address City/State/[facility] Co de Phone Number [facility] [address] [place] [address] documented in this encounter Visit Diagnoses Diagnosis Encounter for screening for malignant neoplasm of colon Special screening for malignant neoplasms, colon documented in this encounter Care Teams Printed Circuit Boards Plasma Etcher Relationship Specialty Start Date End Date Esther Redd, NUCLEAR OPERATIONS SPECIALIST [address] [place] [address] PCP - General 05/24/11 documented as of this encounter
--- OUTSIDE RECORDS SUMMARY | 2024-07-10 09:54 | XMS_ITS | Encounter Summary ---
Author Organization [facility] Address [address] [place] [address] Care Team Providers Care Gaming Floor Supervisor Name Role Phone Unavailable Primary Care Provider Unavailabl e Encounter Details Date Type Department Care Team (Late st Contact Info) Description 02/05/2001 Results Only [facility] - Maple conversion [address] [place] [address] Esther Strauss, FRONT END LOADER OPERATOR [address] [place] [address] Social History Tobacco Use Types Packs/Day Years [...] Procedure Name Priority Date/Time Associated Diagnosis Comments CYTOPATHOLOGY Routine 02/05/2001 0:00 EDT documented in this encounter Results * CYTOPATHOLOGY (02/05/2001 0:00 EDT) Pathology Report: CYTOPATHOLOGY REPORT Reports generated via electronic interface contain original data; however they are lacking the format of the original report. Caution should be taken when reading/interpreti ng unformatted reports. Name: ? ARA LAMA ? Accession #: ? [id number] : ? 1960 (Age: 40) ??F ?Collect Date: ? 02/05/2001 Location: ? [facility] ? Receive Date: ? 02/07/2001 Provider: ?ESTHER STRAUSS FRONT END LOADER OPERATOR Copy to: ? Specimen/Source: ?ThinPrep Pap Test, Cervix/Endocervix Last Menstrual Period: ? 01/16/01 ? SPECIMEN ADEQUACY ? Satisfactory for evaluation. GENERAL CATEGORIZATION ? Within Normal Limits ? Document reviewed and electronically signed by: ? GEMMA Jean(ASCP) ? Report Date: ??02/08/2001 09:36 End of Report [facility] 02/05/2001 02/07/2001 us Esther Strauss NP PATHOLOGY ORDERABLES Final Result [facility] [address] [place] [address] documented in this encounter Visit Diagnoses Not on filedocumented in this encounter
--- OUTSIDE RECORDS SUMMARY | 2024-07-10 09:54 | XMS_ITS | Encounter Summary ---
Author Organization [facility] Address [address] [place] [address] Care Team Providers Care Vaccine Customer Representative Name Role Phone Unavailable Primary Care Provider Unavailabl e Encounter Details Date Type Department Care Team (Late st Contact Info) Description 05/30/2006 Results Only [facility] - Maple conversion [address] [place] [address] Sharon Hidalgo, SOFIA Social History Tobacco Use Types Packs/Day Years [...] Priority Date/Time Associated Diagnosis Comments CYTOPATHOLOGY Routine 05/30/2006 0:00 EDT CYTOPATHOLOGY Routine 05/30/2006 0:00 EDT documented in this encounter Results * CYTOPATHOLOGY (05/30/2006 0:00 EDT) Pathology Report: CYTOPATHOLOGY REPORT Reports generated via electronic interface contain original data; however they are lacking the format of the original report. Caution should be taken when reading/interpreti ng unformatted reports. Name: ? NILESHIRMA PASTORKI ? Accession #: ? [id number] : ? 1960 (Age: 46) ??F ?Collect Date: ? 05/30/2006 Location: ? [facility] ? Receive Date: ? 05/31/2006 Provider: ?SHARON HIDALGO COTTON JAMMER Copy to: ? Specimen/Source: ?ThinPrep Pap Test, Cervix/Endocervix, 2 vials, this is vial B, processed on [employer] ThinPrep Imaging System, with manual evaluation Last Menstrual Period: ? 05/22/06 Other: ? Additional clinical information: Irregular cx., 2 paps as precaution HPVA - HPV testing requested if ASC-US on the current ThinPrep Pap test. ? SPECIMEN ADEQUACY ? Satisfactory for Evaluation - transformation zone component present GENERAL CATEGORIZATION ? Negative for Intraepithelial Lesion or Malignancy ? Document reviewed and electronically signed by: ? Pushpa Amaral, GEMMA(ASCP)(IAC) ? Report Date: ??06/01/2006 10:00 End of Report [facility] 05/30/2006 05/31/2006 us Sharon Hidalgo NP PATHOLOGY ORDERABLES Final Re sult [facility] [address] [place] [address] * CYTOPATHOLOGY (05/30/2006 0:00 EDT) Pathology Report: CYTOPATHOLOGY REPORT Reports generated via electronic interface contain original data; however they are lacking the format of the original report. Caution should be taken when reading/interpreti ng unformatted reports. Name: ? ARA LAMA ? Accession #: ? [id number] : ? 1960 (Age: 46) ??F ?Collect Date: ? 05/30/2006 Location: ? [facility] ? Receive Date: ? 05/31/2006 Provider: ?SHARON HIDALGO COTTON JAMMER Copy to: ? Specimen/Source: ?ThinPrep Pap Test, Cervix/Endocervix, 2 vials, this is vial A, processed on [employer] ThinPrep Imaging System, with manual evaluation Last Menstrual Period: ? 05/22/06 Other: ? Additional clinical information: Irregular cx., 2 paps as precaution HPVA - HPV testing requested if ASC-US on the current ThinPrep Pap test. ? SPECIMEN ADEQUACY ? Satisfactory for Evaluation - transformation zone component present GENERAL CATEGORIZATION ? Other, see interpretation INTERPRETATION ? Endometrial cells present in a woman equal to or greater than age 40. Negative for Intraepithelial Lesion or Malignancy. EDUCATIONAL NOTES/RECOMMENDATI ONS ? Benign appearing endometrial cells on Pap tests are usually a normal finding in women with regular menstrual cycles, especially if the Pap test was collected during the first half of the menstrual cycle. There is data showing that endometrial cells on Pap tests may be associated with endometrial/uterin e abnormalities in post menopausal women or in perimenopausal women with abnormal bleeding. There is limited data on the significance of benign endometrial cells in post menopausal women on HRT. ??Clinical correlation is recommended. Note: ??The Pap test is not an accurate test for the screening of endometrial lesions and should not be used as a follow up in patients with clinical suspicion of endometrial pathology. ? Document reviewed and electronically signed by: ? Pushpa Amaral, CT(ASCP)(IAC) ? Report Date: ??06/01/2006 09:54 End of Report [facility] 05/30/2006 05/31/2006 us Sharon Hidalgo COTTON JAMMER PATHOLOGY ORDERABLES Final Re sult [facility] [address] [place] [address] documented in this encounter Visit Diagnoses Not on filedocumented in this encounter
--- OUTSIDE RECORDS SUMMARY | 2024-07-10 09:54 | XMS_ITS | Encounter Summary ---
Author Organization [facility] Address [address] [place] [address] Care Team Providers Care Paratransit Driver Name Role Phone Unavailable Primary Care Provider Unavailabl e Encounter Details Date Type Department Care Team (Late st Contact Info) Description 02/18/2003 Results Only [facility] - Maple conversion [address] [place] [address] Esther Strauss, CLINICAL APPLICATION MANAGER [address] [place] [address] Social History Tobacco Use Types [...] Priority Date/Time Associated Diagnosis Comments CYTOPATHOLOGY Routine 02/18/2003 0:00 EDT documented in this encounter Results * CYTOPATHOLOGY (02/18/2003 0:00 EDT) Pathology Report: CYTOPATHOLOGY REPORT Reports generated via electronic interface contain original data; however they are lacking the format of the original report. Caution should be taken when reading/interpreti ng unformatted reports. Name: ? ARA LAMA ? Accession #: ? [id number] : ? 1960 (Age: 43) ??F ?Collect Date: ? 02/18/2003 Location: ? [facility] ? Receive Date: ? 02/23/2003 Provider: ?ESTHER STRAUSS CLINICAL APPLICATION MANAGER Copy to: ? Specimen/Source: ?ThinPrep Pap Test, Cervix/Endocervix Last Menstrual Period: ? 02/05/02 ? SPECIMEN ADEQUACY ? Satisfactory for Evaluation - transformation zone component absent GENERAL CATEGORIZATION ? Negative for Intraepithelial Lesion or Malignancy INTERPRETATION ? Fungal organisms present morphologically consistent with Raysa species. ? Document reviewed and electronically signed by: ? GEMMA Norris(ASCP) ? Report Date: ??02/25/2003 12:40 End of Report [facility] 02/18/2003 02/23/2003 us Esther Strauss NP PATHOLOGY ORDERABLES Final Result [facility] [address] [place] [address] documented in this encounter Visit Diagnoses Not on filedocumented in this encounter
--- OUTSIDE RECORDS SUMMARY | 2024-07-10 09:54 | XMS_ITS | Encounter Summary ---
Author Organization [facility] Address [address] [place] [address] Care Team Providers Care Assembler Watch Train Name Role Phone Unavailable Primary Care Provider Unavailabl e Encounter Details Date Type Department Care Team (Late st Contact Info) Description 06/01/2004 Results Only [facility] - Maple conversion [address] [place] [address] Esther Strauss, CAR RECORD CLERK [address] [place] [address] Social History Tobacco Use Types [...] Priority Date/Time Associated Diagnosis Comments CYTOPATHOLOGY Routine 06/01/2004 0:00 EDT documented in this encounter Results * CYTOPATHOLOGY (06/01/2004 0:00 EDT) Pathology Report: CYTOPATHOLOGY REPORT Reports generated via electronic interface contain original data; however they are lacking the format of the original report. Caution should be taken when reading/interpreti ng unformatted reports. Name: ? ARA LAMA ? Accession #: ? [id number] : ? 1960 (Age: 44) ??F ?Collect Date: ? 06/01/2004 Location: ? [facility] ? Receive Date: ? 06/03/2004 Provider: ?ESTHER STRAUSS CAR RECORD CLERK Copy to: ? Specimen/Source: ?ThinPrep Pap Test, Cervix Last Menstrual Period: ? 05/20/04 ? SPECIMEN ADEQUACY ? Satisfactory for Evaluation - transformation zone component absent GENERAL CATEGORIZATION ? Negative for Intraepithelial Lesion or Malignancy ? Document reviewed and electronically signed by: ? Ling Yu, SCT(ASCP) ? Report Date: ??06/09/2004 11:35 End of Report [facility] 06/01/2004 06/03/2004 us Esther Strauss CAR RECORD CLERK PATHOLOGY ORDERABLES Final Result [facility] [address] [place] [address] documented in this encounter Visit Diagnoses Not on filedocumented in this encounter
--- OUTSIDE RECORDS SUMMARY | 2024-07-10 09:54 | XMS_ITS | Encounter Summary ---
Author Organization [facility] Address [address] [place] [address] Care Team Providers Care Ordnance Truck Installation Mechanic Name Role Phone Unavailable Primary Care Provider Unavailabl e Encounter Details Date Type Department Care Team (Late st Contact Info) Description 06/28/2006 Results Only [facility] - Maple conversion [address] [place] [address] Smith Salcedo MD [address] [place], [place] [id number] Social History Tobacco Use Types Packs/Day Years [...] Date/Time Associated Diagnosis Comments SURGICAL PATHOLOGY Routine 06/28/2006 0:00 EST documented in this encounter Results * SURGICAL PATHOLOGY (06/28/2006 0:00 EST) Pathology Report: SURGICAL PATHOLOGY REPORT Reports generated via electronic interface contain original data; however they are lacking the format of the original report. Caution should be taken when reading/interpreti ng unformatted reports. Name: ? KELBYIRMA PASTORKI ? Accession #: ? [id number] ? : ? 1960 (Age: 46) ??F ? Collect Date: ? 06/28/2006 ? Location: ? [facility] ? Receive Date: ? 06/29/2006 ? Provider: SMITH SALCEDO MD Copy to: LEONA STRAUSS BENCH BORING MACHINE OPERATOR ? Final Pathologic Diagnosis: ? Endometrium, biopsy: 1. ?Proliferative endometrium. 2. ?Rare fragments of benign endocervical glandular epithelium. Document reviewed and electronically signed by: Bridgett Velazquez MD Report ??Date: 07/04/2006 18:00 By the signature above, the attending physician certifies that he/she has personally conducted a gross and/or microscopic examination of the described specimens and rendered or confirmed the above diagnosis. Specimen(s) Received: ? Endometrial bx Clinical History: ? A.U.B.; LMP: 06/14/06 Gross Description: ? Received in formalin labelled Kelby and endometrial bx at 14:30 are multiple fragments of felix-brown soft tissue admixed with mucus measuring 2.5 x 1.0 x 0.4 cm in aggregate. ??Submitted entirely in one cassette. ??(Ileana Khan)/[facility] ?? End of Report [facility] 06/28/2006 06/29/2006 10: 39 EST us Smith Salcedo MD PATHOLOGY ORDERABLES Final Resul t [facility] [address] [place] [address] documented in this encounter Visit Diagnoses Not on filedocumented in this encounter
--- OUTSIDE RECORDS SUMMARY | 2024-07-10 09:54 | XMS_ITS | Encounter Summary ---
Author Organization [facility] Address [address] [place] [address] Care Team Providers Care Roadway Technician Name Role Phone Tramaine Esther Gant AUDIT SENIOR ASSOCIATE Primary Care Provider [phone] Encounter Details Date Type Department Care Team (Late st Contact Info) Description 11/26/2012 Results Only [facility] [address] [place], [place] [id number] Andria Larson NP [address] [facility],[address] [address] Social History Tobacco Use Types Packs/Day [...] Procedure Name Priority Date/Time Associated Diagnosis Comments PAP TEST- RESULT ONLY Routine 11/26/2012 0:00 EDT documented in this encounter Results * PAP TEST- RESULT ONLY (11/26/2012 0:00 EDT) Pathology Report: CYTOPATHOLOGY REPORT Reports generated via electronic interface contain original data; however they are lacking the format of the original report. Caution should be taken when reading/interpreti ng unformatted reports. Name: ? ARA LAMA ? Accession #: ? [id number] : ? 1960 (Age: 52) ??F ?Collect Date: ? 11/26/2012 Location: ? [facility] ? Receive Date: ? 11/28/2012 Provider: ?ANDRIA LARSON AUDIT SENIOR ASSOCIATE Copy to: ?ANDRIA LARSON AUDIT SENIOR ASSOCIATE ? Specimen/Source: ?Pap Test, Vagina, ThinPrep Imaging System with manual evaluation Last Menstrual Period: ? 2007 Treatment History: ? Hysterectomy: total abdominal 2007 Miscellaneous treatment: bilatsalpingo oophectomey ? SPECIMEN ADEQUACY ? Satisfactory for Evaluation - assessment of transformation zone component not applicable ( e.g. atrophy, vaginal sample, hysterectomy) - scant squamous epithelial component GENERAL CATEGORIZATION ? Negative for Intraepithelial Lesion or Malignancy INTERPRETATION ? Fungal organisms present morphologically consistent with Raysa species. ? Document reviewed and electronically signed by: ? GEMMA Infante(ASCP) ? Report Date: ??12/04/2012 10:14 End of Report [facility] 11/26/2012 11/28/2012 us Andria Larson NP PATHOLOGY ORDERABLES Final R esult [facility] [address] [place] [address] documented in this encounter Visit Diagnoses Not on filedocumented in this encounter Care Teams Roadway Technician Relationship Specialty Start Date End Date Esther Redd NP [address] [place] [address] PCP - General 05/24/11 documented as of this encounter
--- OUTSIDE RECORDS SUMMARY | 2024-07-10 09:54 | XMS_ITS | Encounter Summary ---
Author Organization [facility] Address [address] [place] [address] Care Team Providers Care Cane Flume Watcher Name Role Phone Esther Redd TRUCK BRACER Primary Care Provider Encounter Details Date Type Department Care Team (Late st Contact Info) Description 11/03/2008 Before PRISM Converted Visit (Maple) [facility] - Maple conversion [address] [place] [address] Esther Redd, TRUCK BRACER [address] [facility] [address] [place] [address] Social History Tobacco Use Types [...] Procedure Name Priority Date/Time Associated Diagnosis Comments MA BREAST OUTSIDE CONSULTATION 11/03/2008 8:51 EDT documented in this encounter Results * MA OUTSIDE FILM CONSULTATION (11/03/2008 8:51 EDT) Anatomical Region Laterality Modality Other 11/03/2008 8:51 EDT Narrative 12/15/2008 2:42 EDT review of ouitside films from [facility] JENNA OUTSIDE FILMS ??Nov 03, 2008 8:51:00 AM Signs and Symptoms: ??review of ouitside films from [facility] and [facility] History: Patient had her original workup at [facility]. She was subsequently seen in consultation at [facility]. A biopsy of the left breast finding was requested at that time but the patient declined. She now is asking for an evaluation and biopsy here. Images reviewed: We have the original screening mammogram of March 30, 2008 as well as additional views from April 02, 2008 and an ultrasound of the same date. These are all from [facility]. In addition, a left breast mammogram dated May 06, 2008 and an ultrasound the left breast are available from [facility]. As well, a comparison study from [facility] is available dated August 05, 2004 as well as an older study from 2000. Left breast findings: The patient was referred because of a mass in the medial left breast. The breast tissue is heterogeneously dense, limiting interpretation. There is an overall nodular pattern to the breast but most of this is relatively stable appearing. There is a finding containing a calcification located at 9:00 measuring 13 mm. This is best seen on the CC view and focal compression CC view. It has well circumscribed borders. It is also relatively well seen on the MLO focal compression view. This finding is more prominent than on comparison imaging although this region is less obscured on the more recent study. The outside sonogram of April 02, 2008 identifies a solid mass located at 9:00 in the left breast measuring 13 x 7 mm. The followup exam at [facility] identifies the same finding at 9:00. 6 cm in the nipple measuring 8 x 7 x 9 mm. It is well circumscribed with gentle lobulations and most likely represents a fibroadenoma. Impression left breast: The finding in question has a relatively benign appearance. 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 Given that it is now 6 months since the original evaluation, I would not recommended a biopsy. I would recommend that the patient return for a followup mammogram and ultrasound to assess stability. If the finding appears stable at that time, I do not think that a biopsy would be needed. Right breast findings: The original mammographic and sonographic workup at [facility] identified a mass in the central region of the right breast. There is an overall nodular pattern and there is a round mass located at 12:00 measuring 15 mm. The outside ultrasound at that time documented finding which is hypoechoic and oval and well circumscribed measuring 16 x 6 x 12 mm. On consultation at [facility], they felt this finding was stable from older imaging and considered benign. I do agree that it is stable compared with the 2004 mammogram. it maybe helpful, however, to perform a followup right breast ultrasound at the time of the left breast ultrasound to document stability of the sonographic finding. Impression right breast: Stable finding on mammography. Probably benign finding on sonography. Birads category 3. A six-month followup ultrasound at this time is recommended. A member of the radiology department will contact the patient to scheduled the above followup exams. Addendum Begins To clarify, I am considering the left breast birads category 3, probably benign but would recommend that the followup imaging be performed at this time as it is now 6 months since the original evaluation. Addendum Ends Procedure Note Traci Zapata MD - 12/15/2008 review of ouitside films from [facility] JENNA OUTSIDE FILMS Nov 03, 2008 8:51:00 AM Signs and Symptoms: review of ouitside films from [facility] History: Patient had her original workup at [facility]. She was subsequently seen in consultation at [facility]. A biopsy of the left breast finding was requested at that time but the patient declined. She now is asking for an evaluation and biopsy here. Images reviewed: We have the original screening mammogram of March 30, 2008 as well as additional views from April 02, 2008 and an ultrasound of the same date. These are all from [facility]. In addition, a left breast mammogram dated May 06, 2008 and an ultrasound the left breast are available from [facility]. As well, a comparison study from [facility] is available dated August 05, 2004 as well as an older study from 2000. Left breast findings: The patient was referred because of a mass in the medial left breast. The breast tissue is heterogeneously dense, limiting interpretation. There is an overall nodular pattern to the breast but most of this is relatively stable appearing. There is a finding containing a calcification located at 9:00 measuring 13 mm. This is best seen on the CC view and focal compression CC view. It has well circumscribed borders. It is also relatively well seen on the MLO focal compression view. This finding is more prominent than on comparison imaging although this region is less obscured on the more recent study. The outside sonogram of April 02, 2008 identifies a solid mass located at 9:00 in the left breast measuring 13 x 7 mm. The followup exam at [facility] identifies the same finding at 9:00. 6 cm in the nipple measuring 8 x 7 x 9 mm. It is well circumscribed with gentle lobulations and most likely represents a fibroadenoma. Impression left breast: The finding in question has a relatively benign appearance. 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 Given that it is now 6 months since the original evaluation, I would not recommended a biopsy. I would recommend that the patient return for a followup mammogram and ultrasound to assess stability. If the finding appears stable at that time, I do not think that a biopsy would be needed. Right breast findings: The original mammographic and sonographic workup at [facility] identified a mass in the central region of the right breast. There is an overall nodular pattern and there is a round mass located at 12:00 measuring 15 mm. The outside ultrasound at that time documented finding which is hypoechoic and oval and well circumscribed measuring 16 x 6 x 12 mm. On consultation at [facility], they felt this finding was stable from older imaging and considered benign. I do agree that it is stable compared with the 2004 mammogram. it maybe helpful, however, to perform a followup right breast ultrasound at the time of the left breast ultrasound to document stability of the sonographic finding. Impression right breast: Stable finding on mammography. Probably benign finding on sonography. Birads category 3. A six-month followup ultrasound at this time is recommended. A member of the radiology department will contact the patient to scheduled the above followup exams. Addendum Begins To clarify, I am considering the left breast birads category 3, probably benign but would recommend that the followup imaging be performed at this time as it is now 6 months since the original evaluation. Addendum Ends us Esther Redd NP IMG MAMMOGRAPHY ORDERABLES Final Result documented in this encounter Visit Diagnoses Not on filedocumented in this encounter Care Teams Cane Flume Watcher Relationship Specialty Start Date End Date Esther Redd, TRUCK BRACER [facility] [address] [place] [address] PCP - General 05/24/11 documented as of this encounter
== END 2024-07-10 10:12 ==
LOC: DI 09:52
PROVIDERS: PCP Physician Assistant; Visit Provider Physician Assistant Medical
DX: R10.10 Upper abdominal pain, unspecified (principal)
CPT/HCPCS: 76705

== ENCOUNTER 2024-07-11 12:45 | Outpatient (REF) | payer OTHER, MEDICAID, SELFPAY ==
--- OUTSIDE RECORDS SUMMARY | 2024-07-11 12:52 | XMS_ITS | Encounter Summary ---
Author Organization [facility] [place] [place] [address] Care Team Providers Care Manifold Operator Name Role Phone Heidy Boyd APRN Primary Care Provider Encounter Details Date Type Department Care Team (Late st Contact Info) Description 12/14/2016 Telephone Obstetrics [place] [address] Wilner Munoz MD [facility] [address] OBSTETRICS [place] [address] Social History Tobacco Use Types Packs/Day Years [...] she cancelled her preop appointment via the [facility] system. Pt does not want to proceed with surgery. She will call when and if she desires to reschedule. documented in this encounter Plan of Treatment Not on file documented as of this encounter Visit Diagnoses Not on filedocumented in this encounter Care Teams Manifold Operator Relationship Specialty Start Date End Date Heidy Boyd APRN [address] [place] [address] [place] [address] PCP - General Family Medicine 04/20/16 06/12/19 documented as of this encounter
--- OUTSIDE RECORDS SUMMARY | 2024-07-11 12:52 | XMS_ITS | Encounter Summary ---
Author Organization [facility] Address [facility] [place] [address] Care Team Providers Care Cuff Cutter Name Role Phone Heidy Boyd APRN Primary Care Provider [phone] Encounter Details Date Type Department Care Team (Late st Contact Info) Description 04/22/2019 External [place] [address] Provider, Scanning Social History Tobacco Use Types [...] on filedocumented in this encounter Care Teams Cuff Cutter Relationship Specialty Start Date End Date Heidy Boyd APRN [address] [place] [address] PCP - General Family Medicine 04/20/16 06/12/19 documented as of this encounter
--- OUTSIDE RECORDS SUMMARY | 2024-07-11 12:52 | XMS_ITS | Encounter Summary ---
Author Organization [facility] Address [address] [place] [address] Care Team Providers Care Radar Scientist Name Role Phone ReddEsther Alfreda FARM MACHINE TENDER Primary Care Provider Encounter Details Date Type Department Care Team (Late st Contact Info) Description 12/06/2020 Lab Requisition [facility] Pathology & Laboratory Medicine - [facility] [address] [place] [address] Rajan Ko MD [address] [place] [address] [address] [place], [place] [id number] Encounter for screening for malignant neoplasm of [...] for intestinal metaplasia and dysplasia. 12/07/2020 10:41 [facility] Attestation By the signature below, the attending physician certifies that they have 1) personally conducted a gross and/or microscopic examination of the described specimen(s), and/or personally interpreted the results of laboratory testing of the described specimen(s), and 2) personally rendered or confirmed the above diagnosis. 12/07/2020 10:41 [facility] at 1041 Clinical History GERD; screening for colon cancer 12/07/2020 10:41 [facility] Gross Description A. Received in [...] D1. ASPEN CONWAY(ASCP) 12/06/2020 17:22 12/07/2020 10:41 [facility] Performing Lab [facility] 10:41 EDT [facility] Scanned Images 12/07/2020 10:41 EDT [facility] Tissue ENTIRE ESOPHAGUS / [...] ORDERABLES Fin al Result Performing Organization Address City/State/[facility] Co de Phone Number [facility] [address] [place] [address] documented in this encounter Visit Diagnoses Diagnosis Encounter for screening for malignant neoplasm of colon Special screening for malignant neoplasms, colon documented in this encounter Care Teams Radar Scientist Relationship Specialty Start Date End Date Esther Redd, FARM MACHINE TENDER [address] [place] [address] PCP - General 05/24/11 documented as of this encounter
--- OUTSIDE RECORDS SUMMARY | 2024-07-11 12:52 | XMS_ITS | Encounter Summary ---
Author Organization [facility] Address [facility] [place] [address] Care Team Providers Care Brand Director Name Role Phone Marie Buckley APRN Primary Care Provider [phone] Reason for Visit * Reason Comments Follow-up Encounter Details Date Type Department Care Team (Late st Contact Info) Description 06/13/2019 3:00 PM EDT Office Visit Dermatology at [address] [phone] Tyrell Lemon MD [address] [facility] [place] [address] Dermatitis Social History Tobacco Use Types Packs/Day [...] cause documented in this encounter Care Teams Brand Director Relationship Specialty Start Date End Date Marie Buckley APRN [address] [place] [address] PCP - General Family Medicine 06/13/19 documented as of this encounter
--- OUTSIDE RECORDS SUMMARY | 2024-07-11 12:52 | XMS_ITS | Clinical Summary ---
Author Organization [facility] Address [facility] [address] Care Team Providers Care Pan Shaker Name Role Phone Marie Buckley ERIC Primary Care Provider [phone] Allergies Active Allergy Reactions Criticality Noted Date Comments Gloves, Latex CIS - Localized Reaction Penicillins Tree Nut Medium *walnuts* mouth swelling Medications Medication Sig Dispensed Refills Start Date End Date Status PARoxetine (PAXIL) 20 mg tablet 10/14/2008 Active omeprazole (PRILOSEC) 20 mg capsule 10/14/2008 Active GLUCOSAMINE SULFATE (GLUCOSAMINE ORAL) 10/14/2008 Active Flaxseed Oil 1,000 mg Cap 10/14/2008 Active [place]-3 Fatty Acids (FISH OIL) 500 mg Cap [...] EST) Glucose 93 65 - 199 mg/dL [facility] Comment:Diabetes: >=200 mg/d L plus symptoms Blood Urea Nitrogen 15 8 - 18 mg/dL [facility] Creatinine 0.93 0.70 - 1.20 mg/dL [facility] Sodium 138 135 - 145 mmol/L [facility] Potassium 4.0 3.5 - 5.0 mmol/L [facility] Comment: Please note: ??Patients with WBC >100,000 may have falsely elevated Potassium levels. ??For accurate Potassium quantification in these patients send serum separator tube (gold top) for subsequent determinations. ??Contact the Clinical Chemistry Laboratory if there are any questions. Chloride 103 98 - 107 mmol/L [facility] Carbon Dioxide 22 22 - 31 mmol/L [facility] Anion Gap 13 5 - 15 mmol/L [facility] Calcium 9.9 8.5 - 10.5 mg/dL [facility] Protein, Total 7.7 6.1 - 8.0 gm/dL [facility] Albumin 4.4 3.2 - 5.2 gm/dL [facility] Aspartate Aminotransferase 21 0 - 30 unit/L [facility] Alanine Aminotransferase 17 0 - 30 unit/L [facility] Alkaline Phosphatase 92 35 - 105 unit/L [facility] Bilirubin, Total 0.6 0.2 - 1.3 mg/dL [facility] Est Glomerular Filtration Rate 66 >=60 mL/min/1. 73 m?? [facility] Comment: This patient? s estimated [...] Lab Patrice Diane MD CHEMISTRY ORDERABL ES [facility] [place] [address] from Last 3 Months or Most Recently Relevant to Health Maintenance Care Teams Pan Shaker Relationship Specialty Start Date End Date Marie Buckley APRN [address] [place], [place] [id number] PCP - General Family Medicine 06/13/19
--- OUTSIDE RECORDS SUMMARY | 2024-07-11 12:52 | XMS_ITS | Encounter Summary ---
Author Organization [facility] Address [facility] [place] [address] Care Team Providers Care Scale Tester Name Role Phone Marie Buckley APRN Primary Care Provider Reason for Visit * Reason Comments Follow-up Encounter Details Date Type Department Care Team (Late st Contact Info) Description 07/21/2019 2:30 PM EST Office Visit Dermatology at [address] [address] Tyrell Lemon MD [address] [facility] [address] Dermatitis Social History Tobacco Use Types Packs/Day [...] cause documented in this encounter Care Teams Scale Tester Relationship Specialty Start Date End Date Marie Buckley APRN [address] [place] [address] PCP - General Family Medicine 06/13/19 documented as of this encounter
--- OUTSIDE RECORDS SUMMARY | 2024-07-11 12:52 | XMS_ITS | Encounter Summary ---
Author Organization [facility] Address [facility] [place] [address] Care Team Providers Care Art Objects Salesperson Name Role Phone Heidy Boyd APRN Primary Care Provider [phone] Reason for Visit * Reason Comments Establish Care Rectal Problems rectocele, difficult y w/BM's * Consultation (Routine) - Closed Specialty Diagnoses / Procedures Referred By Contac t Referred To Contact Obstetrics and Gynecology Diagnoses HX of rectocele; difficulty w/ BM's Heidy Boyd APRN [address] [place] [address] [facility] [employer] [address] [place] [address] Referral ID Status Reason Start Date Expiration Date V isits Requested Visits Authorized [id number] Closed Consult, Test & Treat [facility] 04/20/2016 04/20/2017 1 1 Encounter Details Date Type Department Care Team (Late st Contact Info) Description 08/24/2016 11:00 AM EST Office Visit Obstetrics [place] [address] Tobin Munoz MD [facility] [address] OBSTETRICS [place] [address] Rectocele; JACKELIN (stress urinary incontinence, [...] Female Pelvic Medicine and Reconstructive Surgery @ [facility] Patient Name: Ara Lama Patient Primary Care [...] For large fibroids, Dr. Deven Alegre ??? [place] tooth extraction ??? Breast surgery Obstetric History [...] ??? Flaxseed Oil 1,000 mg Cap ??? [place]-3 Fatty Acids (FISH OIL) 500 mg Cap [...] dipstick Result Value Ref Range POC Sp [place] 1.005 1.002 - 1.030 POC pH, UA [...] test (empty supine): negative External Genitalia: Vulva, [place]'s and Bartholin glands normal, urethra without tenderness [...] * POCT urine dipstick (08/24/2016) POC Sp [place] 1.005 1.002 - 1.030 POC pH, UA [...] incontinence documented in this encounter Care Teams Art Objects Salesperson Relationship Specialty Start Date End Date Heidy Boyd, ERIC [address] [place] [address] PCP - General Family Medicine 04/20/16 06/12/19 documented as of this encounter
--- OUTSIDE RECORDS SUMMARY | 2024-07-11 12:52 | XMS_ITS | Encounter Summary ---
Author Organization [facility] [place] [address] Care Team Providers Care Ambulance Paramedic Name Role Phone Heidy Boyd ERIC Primary Care Provider Encounter Details Date Type Department Care Team (Latest Contact Info) Description 04/18/2019 9:41 PM EDT - 04/18/2019 11:59 PM EDT Hospital [place] [phone] Discharge Disposition: Home Social History Tobacco Use [...] 10/14/2008 Flaxseed Oil 1,000 mg Cap 10/14/2008 [place]-3 Fatty Acids (FISH OIL) 500 mg Cap [...] on filedocumented in this encounter Care Teams Ambulance Paramedic Relationship Specialty Start Date End Date Heidy Boyd, ERIC [address] [place] [address] PCP - General Family Medicine 04/20/16 06/12/19 documented as of this encounter
--- OUTSIDE RECORDS SUMMARY | 2024-07-11 12:52 | XMS_ITS | Encounter Summary ---
Author Organization [facility] Address [facility] [place] [address] Care Team Providers Care Outsole Beveler Name Role Phone Marie Buckley APRN Primary Care Provider [phone] Encounter Details Date Type Department Care Team (Late st Contact Info) Description 06/13/2019 Refill Dermatology at [address] [address] Odalis Lopez, PERFECT BINDER OPERATOR Social History Tobacco Use Types Packs/Day Years [...] on filedocumented in this encounter Care Teams Outsole Beveler Relationship Specialty Start Date End Date Marie Buckley APRN [address] [place] [address] PCP - General Family Medicine 06/13/19 documented as of this encounter
--- OUTSIDE RECORDS SUMMARY | 2024-07-11 12:52 | XMS_ITS | Encounter Summary ---
Author Organization [facility] [place] [address] Care Team Providers Care Cuff Setter Name Role Phone Marie Buckley APRN Primary Care Provider [phone] Encounter Details Date Type Department Care Team (Late st Contact Info) Description 01/31/2007 [place] [address] Rex Fishman MD DERMATOLOGY Social History Tobacco [...] Pathology Report (01/31/2007 1:15 PM EDT) Pathologist [facility] Surgical Pathology Report [id number] ? Location: The signing pathologist has (i) [...] filedocumented in this encounter Care Teams Cuff Setter Relationship Specialty Start Date End Date Marie Buckley, EDGE TRIMMER [address] [place] [address] PCP - General Family Medicine 06/13/19 documented as of this encounter
--- OUTSIDE RECORDS SUMMARY | 2024-07-11 12:52 | XMS_ITS | Encounter Summary ---
Author Organization [facility] Address [facility] [place] [address] Care Team Providers Care Knot Saw Operator Name Role Phone Marie Buckley APRN Primary Care Provider Encounter Details Date Type Department Care Team (Late st Contact Info) Description 10/30/2006 Orders Only Obstetrics [place] [address] Savanna Rivera MD [facility] DR OBSTETRICS & [place] [address] Social History Tobacco Use Types Packs/Day Years [...] 11:48 AM EDT) Surgical Pathology Report [id number] ? Location: [facility]; 0211; B The signing [...] 4.0 x 2.0 cm. ? Outer surface: ??Curran-felix and wrinkly. ? Cut surface: ?Reveals 0.7-jg-cz-diameter cyst. ??Yellow nodules. ? The remainder ranges from pink to purple. ?Left tube: ? Curran; appears grossly normal, 5.5 cm, with a ? portion that was already removed. Sections/Processin g: ? Mental Health Practitioner sections are submitted as follows: ? (1) anterior cervix; (2) posterior cervix; (3-4) ? endometrium; (5-8) right tube and ovary; (9-16) ? left tube and ovary; (17-31) sales representative health insurance ? sections of myometrial lesion. ??(R31) ??aje/ELF [...] on filedocumented in this encounter Care Teams Knot Saw Operator Relationship Specialty Start Date End Date Marei Buckley, DIRECT CUSTOMER SERVICE REPRESENTATIVE [address] [facility] [place] [address] PCP - General Family Medicine 06/13/19 documented as of this encounter
--- OUTSIDE RECORDS SUMMARY | 2024-07-11 12:52 | XMS_ITS | Referral Summary ---
Author Organization [facility] Address [address] [place] [address] Care Team Providers Care Electric Wirer Name Role Phone Esther Redd Alfreda SCHOOL SPEECH LANGUAGE PATHOLOGIST Primary Care Provider [phone] Social History Tobacco Use Types Packs/Day Years [...] on file Insurance MEDICAID [place] Care Teams Electric Wirer Relationship Specialty Start Date End Date Esther Redd, SOFIA [address] [place] [address] PCP - General 05/24/11
--- OUTSIDE RECORDS SUMMARY | 2024-07-11 12:52 | XMS_ITS | Encounter Summary ---
Author Organization [facility] [place] [address] Care Team Providers Care Box Bender Name Role Phone Heidy Boyd APRN Primary Care Provider [phone] Encounter Details Date Type Department Care Team (Late st Contact Info) Description 10/11/2016 Telephone Obstetrics [place] [phone] Wilner Munoz MD [facility] [address] [place] [address] Social History Tobacco Use Types Packs/Day Years [...] on filedocumented in this encounter Care Teams Box Bender Relationship Specialty Start Date End Date Heidy Boyd, ERIC [address] [facility] [place] [address] PCP - General Family Medicine 04/20/16 06/12/19 documented as of this encounter
--- OUTSIDE RECORDS SUMMARY | 2024-07-11 12:52 | XMS_ITS | Encounter Summary ---
Author Organization [facility] [place] [address] Care Team Providers Care Radiology Therapist Name Role Phone Heidy Boyd APRN Primary Care Provider [phone] Reason for Visit * Reason Comments Skin Check Encounter Details Date Type Department Care Team (Late st Contact Info) Description 04/18/2019 11:00 AM EDT Office Visit Dermatology at [address] [phone] Tyrell Lemon MD [address] [facility], [place] [address] Dermatitis Social History Tobacco Use Types Packs/Day [...] with her daughter Marielos who is a registered veterinary technician. Patient states that about 4 5 years [...] buttocks. 2. The patient's daughter is a registered veterinary technician and is also wonders about arthropod bites and will look into this at home. 3. Patient states that her home is a very ricki. Suggested trying to improve this situation. NB: Could consider Kenalog injections for any sites that do not heal and remain pruritic CC: Hediy Boyd APRN documented in this encounter Plan of Treatment Not on file documented as of this encounter Procedures Procedure Name Priority Date/Time Associated Diagnosis Comments SURGICAL PATHOLOGY REPORT Routine 04/18/2019 12:00 PM EDT documented in this encounter Results * Surgical Pathology Report (04/18/2019 12:00 PM EDT) Final Diagnosis [id number] ? Location: LID The signing pathologist has (i) examined the relevant preparation(s) for the specimen(s) and (ii) rendered or confirmed the diagnosis(es). . ?Surgical Pathology DIAGNOSIS Skin, left mid parietal scalp, punch ?? biopsy: - Erosion with impetiginized scale crust, dermal fibrosis ?? (see Discussion) Electronically signed by: ??Adam KENYON, PhD, Cony Verified: ??04/23/2019 ?Dermatopatholog ist Performed at: ??-[facility] Dept. of Pathology, [place], [place] DISCUSSION The findings are consistent with [...] labeled A1. ??pps 04/23/2019 9:11 PM EDT [facility] SPECIMEN FROM SKIN / Unknown 04/18/2019 12:00 PM EDT 04/18/2019 12:00 PM EDT Tyrell Lemon MD PATHOLOGY/CYTOLOGY O [place] [facility] [place] [address] documented in this encounter Visit Diagnoses Diagnosis Dermatitis Contact dermatitis and other eczema, due to unspecified cause documented in this encounter Care Teams Radiology Therapist Relationship Specialty Start Date End Date Heidy Boyd, ERIC [address] [place] [address] PCP - General Family Medicine 04/20/16 06/12/19 documented as of this encounter
--- OUTSIDE RECORDS SUMMARY | 2024-07-11 12:52 | XMS_ITS | Encounter Summary ---
Author Organization [facility] Address [facility] [place] [address] Care Team Providers Care Merchandise Coordinator Name Role Phone Marie Buckley APRN Primary Care Provider [phone] Reason for Visit * Reason Comments Chest Pain Shortness of Breath Encounter Details Date Type Department Care Team (Late st Contact Info) Description 10/04/2020 8:38 PM EST - 10/04/2020 11:10 PM [place] [address] Galo Vides MD [facility] [place] [address] Infectious colitis, enteritis and gastroenteritis Discharge Disposition: [...] 10/14/2008 Flaxseed Oil 1,000 mg Cap 10/14/2008 [place]-3 Fatty Acids (FISH OIL) 500 mg Cap [...] disposition: Eloped. Jasmina Pro MD Resident 10/04/20 3550 Associated attestation - Galo Vides MD - [...] Lactate WB 2.4(H) 0.5 - 2.2 mmol/L [facility] Blood specimen (specimen) 10/04/2020 9:10 PM EST 10/04/2020 9:10 PM EST Emergency Dept CHEMISTRY ORDERABLE S Performing Organization Address City/[facility]/ZIP Co de Phone Number [facility] [place] [address] * Gold Tube HOLD (10/04/2020 9:05 PM EST) [facility] Gold Hold Sample in lab. [facility] Blood specimen (specimen) Venous Draw / Unknown 10/04/2020 9:05 PM EST 10/04/2020 9:15 PM EST Jasmina Pro MD CHEMISTRY ORDERABLES Performing Organization Address City/[facility]/ZIP Co de Phone Number [facility] [place] [address] * Blue Tube HOLD (10/04/2020 9:05 PM EST) [facility] Blue Hold Sample in lab. [facility] Blood specimen (specimen) Venous Draw / Unknown 10/04/2020 9:05 PM EST 10/04/2020 9:15 PM EST Jasmina Pro MD HEMATOLOGY ORDERABLE S Performing Organization Address City/[facility]/ZIP Co de Phone Number [facility] [place] [address] * Differential, Automated (10/04/2020 9:05 PM EST) Pathologist [facility] Neutrophil % 53.6 % [facility] Neutrophil Absolute 4.93 1.70 - 6.10 x10(3)/[facility]AT[facility] Lymph % 34.6 % [facility] Lymphocytes Abs 3.2 0.9 - 3.2 x10(3)/[facility]ORY Monocyte % 9.5 % [facility] Monocyte Abs 0.9 0.3 - 0.9 x10(3)/[facility] LABOR[facility] Eos % 1.7 % [facility] Eosinophils Abs 0.2 0.0 - 0.4 x10(3)/[facility] LABORATORY Basophil % 0.4 % [facility] Baso Absolute 0.0 0.0 - 0.1 x10(3)/[facility]ORATORY Immature Gran % 0.20 % [facility] Comment: Immature granulocytes(IG's)percentage and absolute count will include metamyelocytes, myelocytes, and promyelocytes. Blood smears from CBCs yielding IG's will be scanned manually for concordance. If this scan disagrees with the automated IG or if promyelocytes are noted, a manual differential will be performed. Immature Gran Absolute 0.02 0.00 - 0.04 x10(3)/[facility] Blood specimen (specimen) 10/04/2020 9:05 PM EST 10/04/2020 9:14 PM EST Narrative Resulting Agency Comment Spec In Lab Jasmina Pro MD HEMATOLOGY ORDERABLE S [facility] [place] [address] * (ABNORMAL) Hemogram (10/04/2020 9:05 PM EST) Pathologist [facility] White Blood Cell 9.2 4.0 - 9.5 x10(3)/mc L [facility] Red Blood Cell 4.68 4.00 - 5.21 x10(6)/mc L [facility] Hemoglobin 15.2 11.7 - 15.5 gm/dL [facility] Hematocrit 44.3 35.7 - 45.8 % [facility] Mean Cell Volume 94.7(H) 82.6 - 94.4 fL [facility] Mean Cell Hemoglobin 32.5(H) 27.1 - 32.0 pg [facility] Mean Cell Hemoglobin Concentration 34.3 31.7 - 35.0 gm/dL [facility] Platelet 337 145 - 357 x10(3)/mc L [facility] RDW Standard Deviation 42.8 37.0 - 46.0 fL [facility] RDW coefficient of variation 12.3 11.5 - 14.1 % [facility] Mean Platelet Volume 10.9 7.6 - 12.9 fL [facility] NRBC% auto 0.0 % [facility] NRBC Absolute 0.000 0.000 - 0.000 x10(3)/mc L [facility] Blood specimen (specimen) 10/04/2020 9:05 PM EST 10/04/2020 9:14 PM EST Narrative Resulting Agency Comment Spec In Lab Jasmina Pro MD HEMATOLOGY ORDERABLE S [facility] [place] [address] * Troponin (10/04/2020 9:05 PM EST) Troponin-T <0.01 0.00 - 0.00 ng/mL [facility] Comment: The 99th percentile for Troponin T is less than 0.01 ng/mL, any detectable cTnT concentration using this assay should be considered elevated. According to the third universal definition of myocardial infarction the following criteria with a clinical presentation consistent with acute myocardial ischemia meets the diagnosis for a myocardial infarction ([place]). Detection of a rise and/or fall of cTnT, with at least one value greater than the 99th percentile (> or = 0.01) and with at least one of the following ?? Symptoms of ischemia ?? New or presumed new significant [id number] wave (ST-T) changes or new left bundle [...] additional sample may be indicated. Reference: Third [place] Definition of Myocardial Infarction. Journal of the [place] [employer] 2012;60:1581-98 Blood specimen (specimen) 10/04/2020 9:05 PM EST 10/04/2020 9:14 PM EST Narrative Resulting Agency Comment Spec In Lab Patrice Diane MD CHEMISTRY ORDERABL ES Performing Organization Address [facility] de Phone Number [facility] [place] [address] * Lipase (10/04/2020 9:05 PM EST) Lipase 35 0 - 60 unit/L [facility] Blood specimen (specimen) 10/04/2020 9:05 PM EST 10/04/2020 9:14 PM EST Narrative Resulting Agency Comment Spec In Lab Patrice Diane MD CHEMISTRY ORDERABL ES Performing Organization Address [facility] de Phone Number [facility] [place] [address] * Comprehensive metabolic panel (non-fasting) (10/04/2020 9:05 PM EST) Glucose 93 65 - 199 mg/dL [facility] Comment:Diabetes: >=200 mg/d L plus symptoms Blood Urea Nitrogen 15 8 - 18 mg/dL [facility] Creatinine 0.93 0.70 - 1.20 mg/dL [facility] Sodium 138 135 - 145 mmol/L [facility] Potassium 4.0 3.5 - 5.0 mmol/L [facility] Comment: Please note: ??Patients with WBC >100,000 may have falsely elevated Potassium levels. ??For accurate Potassium quantification in these patients send serum separator tube (gold top) for subsequent determinations. ??Contact the Clinical Chemistry Laboratory if there are any questions. Chloride 103 98 - 107 mmol/L [facility] Carbon Dioxide 22 22 - 31 mmol/L [facility] Anion Gap 13 5 - 15 mmol/L [facility] Calcium 9.9 8.5 - 10.5 mg/dL [facility] Protein, Total 7.7 6.1 - 8.0 gm/dL [facility] Albumin 4.4 3.2 - 5.2 gm/dL [facility] Aspartate Aminotransferase 21 0 - 30 unit/L [facility] Alanine Aminotransferase 17 0 - 30 unit/L [facility] Alkaline Phosphatase 92 35 - 105 unit/L [facility] Bilirubin, Total 0.6 0.2 - 1.3 mg/dL [facility] Est Glomerular Filtration Rate 66 >=60 mL/min/1. 73 m?? [facility] Comment: This patient? s estimated [...] MD CHEMISTRY ORDERABL ES Performing Organization Address City/State/[facility] Co de Phone Number [facility] [place] [address] * EKG 12 Lead (10/04/2020 8:31 PM EST) Ventricular rate 77 BPM MUSE SYSTEM Atrial Rate 77 BPM MUSE SYSTEM P-R Interval 132 ms MUSE SYSTEM QRS Duration 84 ms MUSE SYSTEM Q-T Interval 360 ms MUSE SYSTEM QTC Calculated (Bezet) 407 ms MUSE SYSTEM Calculated P [place] 40 degrees MUSE SYSTEM Calculated R [place] 20 degrees MUSE SYSTEM Calculated T [place] 35 degrees MUSE SYSTEM INTERPRETATION Sinus rhythm with frequent Premature ventricular complexes Otherwise normal ECG No previous ECGs available Confirmed by MD Shayy, Colby ([id number]) on 10/05/2020 12:37:26 PM MUSE SYSTEM 10/04/2020 8:31 PM EST 10/05/2020 12:37 PM EST Galo Vides MD ECG ORDERABLES Performing Organization Address [facility] de Phone Number MUSE SYSTEM [...] RN) documented in this encounter Care Teams Merchandise Coordinator Relationship Specialty Start Date End Date Marie Buckley, SANITATION ASSOCIATE [address] [place] [address] PCP - General Family Medicine 06/13/19 documented as of this encounter
--- OUTSIDE RECORDS SUMMARY | 2024-07-11 12:52 | XMS_ITS | Clinical Summary ---
Author Organization [facility] Address [address] [place] [address] Care Team Providers Care Nuclear Plant Construction Worker Name Role Phone Esther Redd Alfreda SHREDDED FILLER HOPPER FEEDER Primary Care Provider Social History Tobacco Use Types Packs/Day Years [...] series) 2033 Insurance MEDICAID [place] Care Teams Nuclear Plant Construction Worker Relationship Specialty Start Date End Date Esther Redd NP [address] [place] [address] PCP - General 05/24/11
--- OUTSIDE RECORDS SUMMARY | 2024-07-11 12:53 | XMS_ITS | Encounter Summary ---
Author Organization [facility] Address [address] [place] [address] Care Team Providers Care Television Production Clerk Name Role Phone Tramaine Esther Gant BOTTOM STEEP TENDER Primary Care Provider [phone] Encounter Details Date Type Department Care Team (Late st Contact Info) Description 11/26/2012 Results Only [facility] Laboratory Services - [facility] ([facility]) [address] [place], [place] [phone] Andria Larson NP [address] [facility] [address] Social History Tobacco Use Types [...] ? ARA LAMA ? Accession #: ? [id number] : ? 1960 (Age: 52) ??F ?Collect Date: ? 11/26/2012 Location: ? [facility] ? Receive Date: ? 11/28/2012 Provider: ?ANDRIA LARSON BOTTOM STEEP TENDER Copy to: ?ANDRIA LARSON BOTTOM STEEP TENDER ? Specimen/Source: ?Pap Test, Vagina, ThinPrep Imaging [...] ORDERABLES Final R esult [facility] [address] [place] [address] documented in this encounter Visit Diagnoses Not on filedocumented in this encounter Care Teams Television Production Clerk Relationship Specialty Start Date End Date Esther Redd NP [address] [place] [address] PCP - General 05/24/11 documented as of this encounter
--- OUTSIDE RECORDS SUMMARY | 2024-07-11 12:53 | XMS_ITS | Encounter Summary ---
Author Organization [facility] Address [address] [place] [address] Care Team Providers Care Spectacle Truer Name Role Phone Unavailable Primary Care Provider Unavailabl e Encounter Details Date Type Department Care Team (Late st Contact Info) Description 06/01/2004 Results Only [facility] - Maple conversion [address] [place] [address] Esther Strauss, BATTERY TESTER FIELD [address] [place] [address] Social History Tobacco Use Types [...] ? ARA LAMA ? Accession #: ? [id number] : ? 1960 (Age: 44) ??F ?Collect Date: ? 06/01/2004 Location: ? [facility] ? Receive Date: ? 06/03/2004 Provider: ?ESTHER STRAUSS BATTERY TESTER FIELD Copy to: ? Specimen/Source: ?ThinPrep Pap Test, Cervix Last Menstrual Period: ? 05/20/04 ? SPECIMEN ADEQUACY ? Satisfactory for Evaluation - transformation zone component absent GENERAL CATEGORIZATION ? Negative for Intraepithelial Lesion or Malignancy ? Document reviewed and electronically signed by: ? Ling Yu, SCT(ASCP) ? Report Date: ??06/09/2004 11:35 End of Report [facility] 06/01/2004 06/03/2004 us Esther Strauss BATTERY TESTER FIELD PATHOLOGY ORDERABLES Final Result [facility] [address] [place] [address] documented in this encounter Visit Diagnoses Not on filedocumented in this encounter
--- OUTSIDE RECORDS SUMMARY | 2024-07-11 12:53 | XMS_ITS | Encounter Summary ---
Author Organization [facility] Address [address] [place] [address] Care Team Providers Care Mail Order Clerk Name Role Phone Unavailable Primary Care Provider Unavailabl e Encounter Details Date Type Department Care Team (Late st Contact Info) Description 06/28/2006 Results Only [facility] - Maple conversion [address] [place] [address] Smith Salcedo MD [address] [place], [place] [id number] Social History Tobacco Use Types Packs/Day Years [...] ? KELBYIRMA PASTORKI ? Accession #: ? [id number] ? : ? 1960 (Age: 46) ??F ? Collect Date: ? 06/28/2006 ? Location: ? [facility] ? Receive Date: ? 06/29/2006 ? Provider: SMITH SLACEDO MD Copy to: LEONA STRAUSS MANAGER BANKING ? Final Pathologic Diagnosis: ? Endometrium, biopsy: [...] aggregate. ??Submitted entirely in one cassette. ??(Ileana Khan)/[facility] ?? End of Report [facility] SH[facility] 06/28/2006 06/29/2006 10: 39 EST us Smith Salcedo MD PATHOLOGY ORDERABLES Final Resul t [facility] [address] [place] [address] documented in this encounter Visit Diagnoses Not on filedocumented in this encounter
--- OUTSIDE RECORDS SUMMARY | 2024-07-11 12:53 | XMS_ITS | Encounter Summary ---
Author Organization [facility] Address [address] [place] [address] Care Team Providers Care Casing Grader Name Role Phone Unavailable Primary Care Provider Unavailabl e Encounter Details Date Type Department Care Team (Late st Contact Info) Description 02/05/2001 Results Only [facility] - Maple conversion [address] [place] [address] Esther Strauss, TIMBER SPOTTER [address] [place] [address] Social History Tobacco Use Types [...] ? ARA LAMA ? Accession #: ? [id number] : ? 1960 (Age: 40) ??F ?Collect Date: ? 02/05/2001 Location: ? [facility] ? Receive Date: ? 02/07/2001 Provider: ?ESTHER STRAUSS TIMBER SPOTTER Copy to: ? Specimen/Source: ?ThinPrep Pap Test, Cervix/Endocervix Last Menstrual Period: ? 01/16/01 ? SPECIMEN ADEQUACY ? Satisfactory for evaluation. GENERAL CATEGORIZATION ? Within Normal Limits ? Document reviewed and electronically signed by: ? GEMMA Jean(ASCP) ? Report Date: ??02/08/2001 09:36 End of Report [facility] 02/05/2001 02/07/2001 us Esther Strauss NP PATHOLOGY ORDERABLES Final Result [facility] [address] [place] [address] documented in this encounter Visit Diagnoses Not on filedocumented in this encounter
--- OUTSIDE RECORDS SUMMARY | 2024-07-11 12:53 | XMS_ITS | Encounter Summary ---
Author Organization [facility] Address [address] [place] [address] Care Team Providers Care Long Haul Truck Driver Name Role Phone Esther Redd FRUIT II FARMWORKER Primary Care Provider [phone] Encounter Details Date Type Department Care Team (Late st Contact Info) Description 11/03/2008 Before PRISM Converted Visit (Maple) [facility] - Maple conversion [address] [place] [address] Esther Redd, FRUIT II FARMWORKER [address] [facility] [address] [place] [address] Social History Tobacco Use Types [...] 2:42 EDT review of ouitside films from [facility] JENNA OUTSIDE FILMS ??Nov 03, 2008 8:51:00 AM Signs and Symptoms: ??review of ouitside films from [facility] History: Patient had her original workup at [facility]. She was subsequently seen in consultation at [facility]. A biopsy of the left breast finding was requested at that time but the patient declined. She now is asking for an evaluation and biopsy here. Images reviewed: We have the original screening mammogram of March 30, 2008 as well as additional views from April 02, 2008 and an ultrasound of the same date. These are all from [facility]. In addition, a left breast mammogram dated May 06, 2008 and an ultrasound the left breast are available from [facility]. As well, a comparison study from [facility] is available dated August 05, 2004 as [...] x 7 mm. The followup exam at [facility] identifies the same finding at 9:00. 6 [...] The original mammographic and sonographic workup at [facility] identified a mass in the central region of the right breast. There is an overall nodular pattern and there is a round mass located at 12:00 measuring 15 mm. The outside ultrasound at that time documented finding which is hypoechoic and oval and well circumscribed measuring 16 x 6 x 12 mm. On consultation at [facility], they felt this finding was stable [...] - 12/15/2008 review of ouitside films from [facility] JENNA OUTSIDE FILMS Nov 03, 2008 8:51:00 AM Signs and Symptoms: review of ouitside films from [facility] History: Patient had her original workup at [facility]. She was subsequently seen in consultation at [facility]. A biopsy of the left breast finding was requested at that time but the patient declined. She now is asking for an evaluation and biopsy here. Images reviewed: We have the original screening mammogram of March 30, 2008 as well as additional views from April 02, 2008 and an ultrasound of the same date. These are all from [facility]. In addition, a left breast mammogram dated May 06, 2008 and an ultrasound the left breast are available from [facility]. As well, a comparison study from [facility] is available dated August 05, 2004 as [...] x 7 mm. The followup exam at [facility] identifies the same finding at 9:00. 6 [...] The original mammographic and sonographic workup at [facility] identified a mass in the central region of the right breast. There is an overall nodular pattern and there is a round mass located at 12:00 measuring 15 mm. The outside ultrasound at that time documented finding which is hypoechoic and oval and well circumscribed measuring 16 x 6 x 12 mm. On consultation at [facility], they felt this finding was stable [...] on filedocumented in this encounter Care Teams Long Haul Truck Driver Relationship Specialty Start Date End Date Esther Redd, FRUIT II FARMWORKER [facility] [address] [place] [phone] PCP - General 05/24/11 documented as of this encounter
--- OUTSIDE RECORDS SUMMARY | 2024-07-11 12:53 | XMS_ITS | Encounter Summary ---
Author Organization [facility] Address [address] [place] [address] Care Team Providers Care Guest Room Inspector Name Role Phone Unavailable Primary Care Provider Unavailabl e Encounter Details Date Type Department Care Team (Late st Contact Info) Description 05/22/2011 Results Only [facility] Laboratory Services - [facility] ([facility]) [address] [place] [address] Ivan Connell MD [address] [place] [id number] Social History Tobacco Use Types Packs/Day Years [...] ? NILESH, ARA ? Accession #: ? [id number] ? : ? 1960 (Age: 51) ??F ? Collect Date: ? 05/22/2011 ? Location: ? [facility] ? Receive Date: ? 05/22/2011 ? Provider: IVAN CONNELL MD ? Copy to: LEONA L STRAUSS PRESS WRITER ? MATY W BESCH PRESS WRITER ? Final Pathologic Diagnosis: ? Breast, left, [...] region and the previously biopsied region ? ([id number]). Locks Tender sections of this case have been reviewed [...] Gross Description: ? Received in formalin labelled [place], Ara and left breast 4 o'clock, 8 [...] PATHOLOGY ORDERABLES Final Result Performing Organization Address City/State/[facility] Co de Phone Number [facility] [address] [place] [address] documented in this encounter Visit Diagnoses Not on filedocumented in this encounter
--- OUTSIDE RECORDS SUMMARY | 2024-07-11 12:53 | XMS_ITS | Encounter Summary ---
Author Organization [facility] Address [address] [place] [address] Care Team Providers Care Industrial Staff Nurse Name Role Phone Unavailable Primary Care Provider Unavailabl e Encounter Details Date Type Department Care Team (Late st Contact Info) Description 05/30/2006 Results Only [facility] - Maple conversion [address] [place] [address] Sharon Hidalgo, SOFIA Social History Tobacco Use [...] ? NILESHIRMA PASTORKI ? Accession #: ? [id number] : ? 1960 (Age: 46) ??F ?Collect Date: ? 05/30/2006 Location: ? [facility] ? Receive Date: ? 05/31/2006 Provider: ?SHARON HIDALGO SENIOR MARKET RESEARCH ANALYST Copy to: ? Specimen/Source: ?ThinPrep Pap Test, Cervix/Endocervix, 2 vials, this is vial B, processed on [employer] ThinPrep Imaging System, with manual evaluation Last [...] Final Re sult [facility] [address] [place] [address] * CYTOPATHOLOGY (05/30/2006 0:00 EDT) Pathology Report: CYTOPATHOLOGY REPORT Reports generated via electronic interface contain original data; however they are lacking the format of the original report. Caution should be taken when reading/interpreti ng unformatted reports. Name: ? ARA LAMA ? Accession #: ? [id number] : ? 1960 (Age: 46) ??F ?Collect Date: ? 05/30/2006 Location: ? [facility] ? Receive Date: ? 05/31/2006 Provider: ?SHARON HIDALGO SENIOR MARKET RESEARCH ANALYST Copy to: ? Specimen/Source: ?ThinPrep Pap Test, Cervix/Endocervix, 2 vials, this is vial A, processed on [employer] ThinPrep Imaging System, with manual evaluation Last [...] [facility] 05/30/2006 05/31/2006 us Sharon Hidalgo SENIOR MARKET RESEARCH ANALYST PATHOLOGY ORDERABLES Final Re sult [facility] [address] [place] [address] documented in this encounter Visit Diagnoses Not on filedocumented in this encounter
--- OUTSIDE RECORDS SUMMARY | 2024-07-11 12:53 | XMS_ITS | Encounter Summary ---
Author Organization [facility] Address [address] [place] [address] Care Team Providers Care Aligning Inspector Name Role Phone Unavailable Primary Care Provider Unavailabl e Encounter Details Date Type Department Care Team (Late st Contact Info) Description 02/18/[address] [facility] - Maple conversion [address] [place] [address] Esther Strauss, SPOT FACER [address] [place] [id number] Social History Tobacco Use Types [...] ? ARA LAMA ? Accession #: ? [id number] : ? 1960 (Age: 43) ??F ?Collect Date: ? 02/18/2003 Location: ? [facility] ? Receive Date: ? 02/23/2003 Provider: ?ESTHER STRAUSS SPOT FACER Copy to: ? Specimen/Source: ?ThinPrep Pap Test, [...] PATHOLOGY ORDERABLES Final Result [facility] [address] [place] [address] documented in this encounter Visit Diagnoses Not on filedocumented in this encounter
--- OUTSIDE RECORDS SUMMARY | 2024-07-11 12:53 | XMS_ITS | Encounter Summary ---
Author Organization [facility] Address [address] [place] [address] Care Team Providers Care Tube Operator Name Role Phone Unavailable Primary Care Provider Unavailabl e Encounter Details Date Type Department Care Team (Late st Contact Info) Description 09/12/2000 Results Only [facility] - Maple conversion [address] [place] [address] Maxi Gutierrez MD [address] [place] [id number] Social History Tobacco Use Types Packs/Day Years [...] ? ARA LAMA ? Accession #: ? [id number] ? : ? 1960 (Age: 40) ??F ? Collect Date: ? 09/12/2000 ? Location: ? [facility] ? Receive Date: ? 09/13/2000 ? Provider: SANFORD GUTIERREZ MD Copy to: ANGELES STRAUSS SEWAGE DISPOSAL ENGINEER ? Final Pathologic Diagnosis: ? Breast, left, [...] ORDERABLES Final Res ult [facility] [address] [place] [address] documented in this encounter Visit Diagnoses Not on filedocumented in this encounter
[2024-07-11 14:53] LABS: Abs Immature Grans 0.01 10^3/uL (0.0-0.06); Absolute Basophil Count 0.06 10^3/uL (0.0-0.2); Absolute Eosinophil Count 0.19 10^3/uL (0.0-0.7); Absolute Lymphocyte Count 2.21 10^3/uL (1.2-3.4); Absolute Monocyte Count 0.74 10^3/uL (0.1-0.8); Absolute Neutrophil Count 4.56 10^3/uL (1.2-6.7); Basophils % 0.8 %; Eosinophils % 2.4 %; HCT 47.6 % (36.0-46.0); HGB 15.9 g/dL (11.2-15.7); Immature Grans % 0.1 %; Lymphocytes % 28.4 %; MCH 32.5 pg (27.0-33.0); MCHC 33.4 % (32.0-36.0); MCV 97 fL (80-95); MPV 11.3 fL (8.0-11.0); Monocytes % 9.5 %; Neutrophils % 58.8 %; Platelet Count 280 10^3/uL (130-400); RBC 4.89 10^6/uL (3.93-5.22); RDW 12.3 % (11.7-14.6); RDW-SD 44.7 fL; WBC 7.77 10^3/uL (4.4-10.8)
[2024-07-11 15:10] LABS: ALT 32 U/L (14-59); AST 21 U/L (15-37); Albumin 3.9 g/dL (3.4-5.0); Alkaline Phosphatase 101 U/L (46-116); Anion Gap 10.1 mmol/L (3-11); BUN 15 mg/dL (7-18); CO2 26.9 mmol/L (21.0-32.0); CREATININE 1.1 mg/dL (0.55-1.02); Calcium 9.9 mg/dL (8.5-10.1); Chloride 104 mmol/L (98-107); Estimated GFR 55.42 (mL/min/1.73m2); Glucose 100 mg/dL (74-106); Lipase 41 U/L (<78); Potassium 4.2 mmol/L (3.5-5.1); Sodium 141 mmol/L (136-145); Total Protein 7.9 g/dL (6.4-8.2)
== END 2024-07-11 12:46 | disposition home or self-care (01) ==
LOC: NCHCN 12:45
PROVIDERS: PCP Physician Assistant; Visit Provider Physician Assistant
DX: R10.10 Upper abdominal pain, unspecified (principal)
CPT/HCPCS: 80053; 83690; 85025

== ENCOUNTER 2025-04-08 13:47 | Outpatient (REF) | payer MEDICARE, MEDICAID, SELFPAY ==
[2025-04-08 21:25] LABS: Glucose Negative (Negative)
[2025-04-08 21:36] LABS: C & S Indicated? Yes; RBC >50 HPF (0-2); WBC 20-50 HPF (0-5)
== END 2025-04-08 13:48 | disposition home or self-care (01) ==
LOC: NCHCN 13:47
PROVIDERS: PCP Physician Assistant; Visit Provider Physician Assistant
DX: R30.0 Dysuria (principal)
CPT/HCPCS: 87077; 81003; 81015; 87086; 87186